=== PATIENT | female | born 1965 | race Caucasian/White ===

== ENCOUNTER 2022-12-19 08:56 | Emergency (ER) | payer BC, SELFPAY ==
[2022-12-19] VITALS (8 sets, daily range): BP systolic 127–164; BP diastolic 69–94; PULSE 66–79; RESP 16–22; TEMP 36.7; O2SAT 94–99
--- NOTE | 2022-12-19 09:24 | ED_ITS ---
HPI - Female Genitourinary General: Chief complaint: Abdominal Pain Stated complaint: urinary pain Time Seen by Provider: 12/19/22 08:59 Source: patient Mode of arrival: ambulatory History of Present Illness: 57-year-old female presents emergency room with complaints of recurrent UTIs she has been seen by walk-in clinic locally she had some cultures done she is on initially nitrofurantoin culture showed resistant that she was then switched to Cipro. the culture she showed showed it to be insensitive to Cipro and switch her from Cipro to trimethoprim sulfamethoxazole she get all pelvic cramping and discomfort. She has not had any hematuria no history of renal stones. No fever sweats or chills. MD elicited complaint: dysuria Pertinent past history: recurrent UTIs Onset (ago): week(s) Location of symptoms: low back Severity: mild Quality of pain: cramping Consistency: constant Urinary symptoms: Dysuria, Frequency and Urgency Exacerbating factors: urination Relieving factors: none Associated symptoms: Deny abdominal pain, short of breath, fevers/chills, headache(s), nausea, rash, seizures, syncope or weakness Review of Systems Const: Denies: fever(s), chills, body aches, change in appetite, fatigue or malaise ENMT: Denies: throat pain, ear or mastoid pain, nasal discharge or nasal congestion Card: Denies: chest pain, palpitations, irregular heart rhythm or syncope Resp: Denies: dyspnea, productive cough or non-productive cough GI: Denies: abdominal pain or nausea : Denies: flank pain, difficulty voiding, dysuria, urinary frequency or urinary urgency Musc: Denies: back pain Skin/Breast: Denies: rash or pruritus Neuro: Denies: headache(s) Physical Exam Const: COMMON NORMALS: no acute distress GENERAL APPEARANCE: cooperative and comfortable ORIENTATION/CONSCIOUSNESS: Yes awake, Yes oriented to person, Yes oriented to place and Yes oriented to time HENMT: COMMON NORMALS: normocephalic, atraumatic and hearing grossly normal bilaterally HEAD & SCALP: normocephalic and atraumatic Resp: COMMON NORMALS: normal respiratory effort, No retractions, No use of accessory muscles and clear to auscultation bilaterally AUSCULTATION: clear to auscultation bilaterally Cardio: COMMON NORMALS: regular rate, regular rhythm and No murmurs present (Cardio) RATE: regular rate RHYTHM: regular rhythm GI: COMMON NORMALS: Soft to palpation and No hepatosplenomegaly present AUSCULTATION: Yes normoactive bowel sounds PALPATION: Yes Soft to palpation, No Tenderness to palpation present (GI), No Guarding due to palpation present (GI) and Yes No hepatosplenomegaly present : COMMON NORMALS: Yes no CVA tenderness BLADDER/KIDNEY EXAM: Yes no CVA tenderness Back/Pelvis: COMMON NORMALS: no CVA tenderness Extremity: COMMON NORMALS: normal to inspection, capillary refill normal, no clubbing, cyanosis or edema, no calf tenderness and no pedal edema Neuro: SENSORIUM/ORIENTATION: Yes oriented to person, Yes oriented to place and Yes oriented to time Skin: COMMON NORMALS: no rashes or lesions noted GENERAL SKIN EXAM: no rashes or lesions noted Course Vital Signs: Vital signs: Vital Signs Temperature 98.0 F 12/19/22 09:03 Pulse Rate 74 12/19/22 11:29 Respiratory Rate 21 H 12/19/22 11:29 Blood Pressure 127/69 12/19/22 11:29 Pulse Oximetry 98 12/19/22 11:29 Oxygen Delivery Me thod Room Air 12/19/22 09:36 MDM - Female Medical Decision Making Labs reviewed. White count normal creatinine is mildly elevated. Patient given fluids we will discharge home with the Augmentin. She has no CVA tenderness at this time. On presentation clinically she does not appear to have a kidney stone. Nonacute abdomen on exam. We will discharge patient home switch to nitrofurantoin for any worsening change symptoms return she should have a repeat BMP within the next week increase fluids. Suspect some of her increase in her creatinine is due to the Bactrim. Lab Data 12/19/22 09:20 12/19/22 09:20 Laboratory Results WBC 5.8 10^3/uL (4.0-10.0) 12/19/22 09:20 RBC 4.23 10^6/uL (4.1-5.3) 12/19/22 09:20 Hgb 13.6 g/dL (11.5-15.3) 12/19/22 09:20 Hct 39.7 % (37.0-47.0) 12/19/22 09:20 MCV 93.9 fl (81-99) 12/19/22 09:20 MCH 32.2 pg (28.0-34.0) 12/19/22 09:20 MCHC 34.3 g/dL (30.0-36.0) 12/19/22 09:20 RDW 13.8 % (12.1-15.1) 12/19/22 09:20 Plt Count 197 10^3/cmm (130-400) 12/19/22 09:20 MPV 10.3 fL (7.4-10.4) 12/19/22 09:20 Neut % (Auto) 63.5 % 12/19/22 09:20 Lymph % (Auto) 25.4 % 12/19/22 09:20 [place] % (Auto) 7.4 % 12/19/22 09:20 Eos % (Auto) 2.8 % 12/19/22 09:20 Baso % (Auto) 0.7 % 12/19/22 09:20 Neut # (Auto) 3.68 10^3/uL (1.8-7.7) 12/19/22 09:20 Lymph # (Auto) 1.5 10^3/uL (0.8-4.8) 12/19/22 09:20 [place] # (Auto) 0.4 10^3/uL (0.2-0.9) 12/19/22 09:20 Eos # (Auto) 0.2 10^3/uL (0.0-0.8) 12/19/22 09:20 Baso # (Auto) 0.0 10^3/uL (0.0-0.1) 12/19/22 09:20 Nucleated RBC % (auto) 0 % 12/19/22 09:20 Nucleated RBCs # 0.0 /100WBC 12/19/22 09:20 Sodium 135 mmol/L (136-145) L 12/19/22 09:20 Potassium 4.4 mmol/L (3.5-5.1) 12/19/22 09:20 Chloride 98 mmol/L (98-107) 12/19/22 09:20 Carbon Dioxide 23 mmol/L (22-29) 12/19/22 09:20 Anion Gap 18.4 (5-19) 12/19/22 09:20 BUN 37 mg/dL (6-20) H 12/19/22 09:20 Creatinine 1.9 mg/dL (0.5-0.9) H 12/19/22 09:20 GFR Calculation 27.2 mL/min (90-130) L 12/19/22 09:20 Glucose 96 mg/dL (65-115) 12/19/22 09:20 Calculated Osmolality 289 mOsm/kg (285-295) 12/19/22 09:20 Calcium 9.5 mg/dL (8.5-10.5) 12/19/22 09:20 Total Bilirubin 0.9 mg/dL (0.15-1.2) 12/19/22 09:20 AST 22 U/L (0-32) 12/19/22 09:20 ALT 33 U/L (0-33) 12/19/22 09:20 Alkaline Phosphatase 91 U/L (35-105) 12/19/22 09:20 Total Protein 7.5 g/dL (6.6-8.7) 12/19/22 09:20 Albumin 4.1 g/dL (3.5-5.2) 12/19/22 09:20 Globulin 3.4 g/dL (1.3-4.6) 12/19/22 09:20 Urine Color [place] (Yellow) 12/19/22 10:38 Urine Appearance Clear (CLEAR) 12/19/22 10:38 Urine pH 6 (5-7) 12/19/22 10:38 Ur Specific [place] 1.025 (1.005-1.030) 12/19/22 10:38 Urine Protein 3+ (Negative) H 12/19/22 10:38 Urine Glucose (UA) Norm (Normal) 12/19/22 10:38 Urine Ketones 1+ (Negative) H 12/19/22 10:38 Urine Blood Neg (Negative) 12/19/22 10:38 Urine Nitrate TNP 12/19/22 10:38 Urine Bilirubin TNP 12/19/22 10:38 Urine Urobilinogen TNP 12/19/22 10:38 Ur Leukocyte Esterase 2+ (Negative) H 12/19/22 10:38 Urine RBC 0-4 /hpf (0-2) H 12/19/22 10:38 Urine WBC >100 /hpf (0-5) H 04/11/23 10:38 Ur Squamous Epith Cells 0-4 /hpf (0-5) H 12/19/22 10:38 Amorphous Sediment Not Reportable 12/19/22 10:38 Urine Bacteria 3+ /hpf (NONE) H 12/19/22 10:38 Discharge Plan Discharge Patient Disposition: Home Clinical Impression: Cystitis Condition: Stable Prescriptions: New amoxicillin-pot clavulanate 875-125 mg tablet 1 tab PO BID Qty: 14 0RF Pyridium 200 mg tablet 200 mg PO Q8H Qty: 6 0RF ondansetron HCl 4 mg tablet 4 mg PO Q6H PRN (Reason: nausea and vomiting) Qty: 20 0RF Discontinued sulfamethoxazole-trimethoprim 800-160 mg tablet 1 tab PO BID No Action alprazolam 1 mg tablet 1 mg PO DAILY PRN (Reason: Anxiety) metoprolol succinate 50 mg tablet extended release 24 hr 50 mg PO BID fluconazole 200 mg tablet 200 mg PO DAILY pramipexole 0.5 mg tablet See Rx Instructions .ROUTE .COMPLEX Rx Instructions: 1 TAB QAM AND 2 TABS AT BEDTIME irbesartan-hydrochlorothiazide 300-12.5 mg tablet 1 tab PO DAILY albuterol sulfate 90 mcg/actuation HFA aerosol inhaler 2 puff INHALATION BID PRN (Reason: Shortness Of Breath Or Wheezing) Discharge Orders: Discharge ED (Routine); Ordered 12/19/22 Ordered By: Ye Ochoa Discharge Diet: Usual diet Discharge Activity: Increase activity as tolerated Patient Instructions: Opioid Safety, Pain Management Activity Restrictions/Additional Instructions: You were seen today for a cystitis. The culture from your previous doctors visit shows that is sensitive to Augmentin recommend you change to Augmentin 875 twice daily for 7 days you are also given Pyridium as a bladder anesthetic ondansetron for nausea. Increase fluid intake return if you have further problems. Coding Level of Care Code ED Reeling And Tubing Machine Operator for Yvon Patterson
[2022-12-19 09:27] LABS: Basophils % 0.7 %; Eosinophils # 0.2 10^3/uL (0.0-0.8); Eosinophils % 2.8 %; Hematocrit 39.7 % (37.0-47.0); Hemoglobin 13.6 g/dL (11.5-15.3); Lymphocytes # 1.5 10^3/uL (0.8-4.8); Lymphocytes % 25.4 %; Mean Corpuscular HGB Conc 34.3 g/dL (30.0-36.0); Mean Corpuscular Hemoglobin 32.2 pg (28.0-34.0); Mean Corpuscular Volume 93.9 fl (81-99); Mean Platelet Volume 10.3 fL (7.4-10.4); Monocytes # 0.4 10^3/uL (0.2-0.9); Monocytes % 7.4 %; Neutrophils # 3.68 10^3/uL (1.8-7.7); Neutrophils % 63.5 %; Nucleated Red Blood Cells % 0 %; Platelet Count 197 10^3/cmm (130-400); Red Blood Count 4.23 10^6/uL (4.1-5.3); Red Cell Distribution Width 13.8 % (12.1-15.1); White Blood Count 5.8 10^3/uL (4.0-10.0)
[2022-12-19 09:45] LABS: Alanine Aminotransferase 33 U/L (0-33); Albumin Level 4.1 g/dL (3.5-5.2); Alkaline Phosphatase 91 U/L (35-105); Anion Gap 18.4 (5-19); Aspartate Amino Transferase 22 U/L (0-32); Blood Urea Nitrogen 37 mg/dL (6-20); Calcium 9.5 mg/dL (8.5-10.5); Carbon Dioxide 23 mmol/L (22-29); Chloride 98 mmol/L (98-107); Globulin 3.4 g/dL (1.3-4.6); Glomerular Filtration Rate 27.2 mL/min (90-130); Glucose 96 mg/dL (65-115); Osmolality Calculated 289 mOsm/kg (285-295); Potassium 4.4 mmol/L (3.5-5.1); Sodium 135 mmol/L (136-145); Total Bilirubin 0.9 mg/dL (0.15-1.2); Total Protein 7.5 g/dL (6.6-8.7)
[2022-12-19 10:56] LABS: Blood Urine Neg (Negative); Glucose Urine UA Norm (Normal); Ketones Urine 1+ (Negative); Protein Urine 3+ (Negative); Specific Gravity, Urine 1.025 (1.005-1.030); Urine Appearance Clear (CLEAR); Urine Color Orange (Yellow); pH Urine 6 (5-7)
[2022-12-19 10:57] LABS: Add Urine Culture? Yes; Add Urine Microscopic? YES; Bacteria Urine 3+ /hpf; Leukocyte Esterase Urine 2+ (Negative); RBC Urine 0-4 /hpf (0-2); Squamous Epithelial Cell Urine 0-4 /hpf (0-5); WBC Urine >100 /hpf (0-5)
--- NOTE | 2022-12-26 14:00 | DCPLANNER ---
inpatient care manager rn called patient due to no primary care physician - no answer at this time.
== END 2022-12-19 11:31 | disposition home or self-care (01) ==
PROVIDERS: Emergency Provider Family Medicine
DX: N30.90 Cystitis, unspecified without hematuria (principal)
CPT/HCPCS: 51798; 80053; 81001; 85025; 87077; 87086; 87186; 99284

== ENCOUNTER → 2023-07-03 12:29 | Outpatient (BNVA) | payer OTHER, SELFPAY | PROVIDERS: PCP Family Medicine; Visit Provider Internal Medicine | DX: R07.9 Chest pain, unspecified (principal) | CPT/HCPCS: 93005 ==

== ENCOUNTER 2023-07-20 09:08 | Emergency (ER) | payer OTHER, SELFPAY ==
[2023-07-20 09:30] VITALS: BP 188/98; PULSE 69; RESP 17; TEMP 36.9; O2SAT 93; BMI 42.7
--- NOTE | 2023-07-20 10:42 | ED_ITS ---
HPI - Extremity Problem General: Chief complaint: Extremity Problem,Nontraumatic Stated complaint: left arm pain, hand numb, knot in arm Time Seen by Provider: 07/20/23 09:40 Source: patient Mode of arrival: ambulatory Limitations: no limitations History of Present Illness: Patient is a 58-year-old female who presents to ED today with a complaint of pain/swelling near her left elbow as well as paresthesias to her lower arm and hand. Patient states approximately 2 to 3 years ago she had an IV near near her left AC space and states contrast infiltrated in that area. She states since then area has been swollen. She would have intermittent pains since then but states over the past 3 months she has had fairly constant pain and began noticing numbness to her left hand digits 1-4. Pain does not seem to be reproduced by movement. Numbness is intermittent but seems to be worse when she is using the extremity. She states she can move her extremity in certain positions to get relief of the paresthesias. Over the past few days she now feels pain the right shoulder and states with certain movements of her neck that it sends a shock down her arm. She denies any neck pain. Feels like maybe she martinez s been overcompensating with the symptoms in her elbow and has no exacerbated her shoulder. Denies any pallor/coolness to the extremity. No redness/warmth. She has not noticed any muscular weakness to the extremity. She has recently seen her PCP Dr. Ricci who told her he thought there might be a mass near her elbow and has ordered an US of this for further evaluation. MD Complaint: extremity pain, extremity swelling, joint swelling and joint pain Onset (ago): month(s) Pain Consistency: intermittent Location: left and upper extremity Radiation: proximal and distal Exacerbating factors: range of motion Associated symptoms: Reports no associated symptoms; Deny chest pain or fever(s) Review of Systems Const: Denies: fever(s), chills, body aches, fatigue or malaise Card: Denies: chest pain Resp: Denies: dyspnea Musc: Reports: extremity pain, extremity swelling, joint pain and joint swelling; Denies: neck pain, back pain, joint redness, joint warmth, joint stiffness, limited range of motion, muscle cramps, muscle weakness or decrease in muscle mass Neuro: Reports: numbness in extremities and sensory changes; Denies: headache(s), weakness in extremities or dizziness Physical Exam Const: COMMON NORMALS: no acute distress, patient oriented x3, no limitations, alert and well nourished GENERAL APPEARANCE: cooperative NUTRITIONAL APPEARANCE: obese morbidly obese ORIENTATION/CONSCIOUSNESS: Yes awake, Yes oriented to person, Yes oriented to place and Yes oriented to time Neck/C-Spine: COMMON NORMALS: full ROM GENERAL: Yes normal visual inspection CERVICAL SPINE: No pain with cervical ROM, No Cervical spine tenderness, No step off deformity and No Lhermitte's sign positive Resp: COMMON NORMALS: normal respiratory effort and clear to auscultation bilaterally AUSCULTATION: clear to auscultation bilaterally Cardio: COMMON NORMALS: regular rate and regular rhythm RATE: regular rate RHYTHM: regular rhythm Back/Pelvis: COMMON NORMALS: thoracic and lumbar spine normal to inspection, no thoracic nor lumbar tenderness and thoraco-lumbar ROM normal Extremity: COMMON NORMALS: normal to inspection, full ROM, capillary refill normal, no joint enlargement and no clubbing, cyanosis or edema GENERAL: Yes normal exam except as noted RIGHT UPPER EXTREMITY: Yes elbow joint OTHER: reports tenderness to ulnar L elbow; mild swelling noted when compared to R however no appreciable masses palpated; pulses intact; no pallor, coolness, erythema, warmth noted anywhere on extremity; she maintains full ROM of all joints; she reports pain radiating down R UE with lateral rotation of the neck; reports paresthesias right now are minimal Neuro: COMMON NORMALS: patient oriented x3 SENSORIUM/ORIENTATION: Yes alert, Yes oriented to person, Yes oriented to place and Yes oriented to time Course Vital Signs: Vital signs: Vital Signs Temperature 98.5 F 07/20/23 09:30 Pulse Rate 69 07/20/23 09:30 Respiratory Rate 17 07/20/23 09:30 Blood Pressure 188/98 07/20/23 09:30 Pulse Oximetry 93 07/20/23 09:30 Oxygen Delivery Me thod Room Air 07/20/23 09:30 MDM - Extremity (Nontraumatic) Medical Decision Making Patient's main complaint is intermittent pain to the left elbow and she has now been experiencing intermittent paresthesias affecting her left hand. She states paresthesias mainly affect everything but my pinky finger . US negative for DVT or any type of soft tissue mass. With reported distribution, ulnar nerve involvement unlikely. Could be median nerve territory. She has no UE weakness/wrist drop to suggest radial nerve invovement. Now given her shoulder discomforts this could be cervical radiculopathy although she has no neck pain. She feels like all her symptoms are orginating from the elbow I think she could potentially benefit from nerve conduction studies for potential nerve entrapment. She states she will follow-up with her primary care provider to see if these can be ordered if they also feel indicated. All radiology interpretation(s) finalized by discharge Discharge Plan Discharge Patient Disposition: Home Clinical Impression: Paresthesia of left upper extremity Condition: Stable Prescriptions: Continued acetaminophen-codeine 300-30 mg tablet 1 tab PO Q6H PRN (Reason: Pain) Qty: 14 0RF No Action losartan 100 mg tablet 100 mg PO DAILY Adthyza 130 mg tablet 130 mg PO DAILY fluoxetine 40 mg capsule 40 mg PO DAILY azelastine 137 mcg (0.1 %) aerosol,spray 2 spray intranasal BID Rx Instructions: administer into each nostril furosemide 20 mg tablet 20 mg PO DAILY clonidine HCl 0.1 mg tablet 0.1 mg PO TID PRN (Reason: high blood pressure) tizanidine 4 mg capsule 4 mg PO Q8H PRN (Reason: Nausea) montelukast [Singulair] 10 mg tablet 10 mg PO DAILY PRN (Reason: Allergic Symptoms) cetirizine [All Day Allergy (cetirizine)] 10 mg tablet 10 mg PO DAILY PRN (Reason: Allergic Symptoms) carvedilol 25 mg tablet 25 mg PO BID Qty: 180 3RF Rx Instructions: must administer with a meal/food Aspir-81 81 mg Tablet,Delayed Release (Dr/Ec) 81 mg PO DAILY PRN (Reason: Chest Pain) cyanocobalamin (vitamin B-12) 1,000 mcg/mL solution 1,000 mcg IM Q7D Wixela Inhub 500-50 mcg/dose Blister With Device 1 inh INHALATION BID nystatin 100,000 unit/gram powder 1 applic topical BID PRN (Reason: Rash) alprazolam 1 mg tablet 1 mg PO DAILY PRN (Reason: Anxiety) pramipexole 0.5 mg tablet 1 mg PO BEDTIME albuterol sulfate 90 mcg/actuation HFA aerosol inhaler 2 puff INHALATION BID PRN (Reason: Shortness Of Breath Or Wheezing) Discharge Orders: Discharge ED (Routine); Ordered 07/20/23 Ordered By: Verito Cobb Referrals: Daniel Ricci MD [Primary Care Provider] - Activity Restrictions/Additional Instructions: As we discussed please follow-up with your primary care provider. I think you might benefit from receiving nerve conduction studies for further evaluation of the numbness in your left hand. Coding Level of Care Code ED Strategic Planning Analyst for Yvon Patterson
--- NOTE | 2023-07-20 10:43 | USCV_ITS ---
Mylene Moran Age: 58 Gender: F : 1965 Exam Date: 07/20/2023 11:02 Ordering Phys: Verito Cobb Technologist: CT Exam Location: [facility] [place]_ Indication: lt arm pain PROCEDURES: Venous duplex imaging was performed in only the left upper extremity. In addition, the basilic vein and cephalic vein. FINDINGS: No evidence of deep vein thrombosis or superficial thrombophlebitis in the left upper extremity. CONCLUSIONS No left upper extremity DVT. Dr. Morena Calvin DO (Electronically Signed) Final Date: 20 July 2023 12:14 S
== END 2023-07-20 12:57 | disposition home or self-care (01) ==
PROVIDERS: Emergency Provider Physician Assistant; PCP Family Medicine
DX: R20.2 Paresthesia of skin (principal); Z79.82 Long term (current) use of aspirin
CPT/HCPCS: 93971; 99284

== ENCOUNTER 2023-08-28 11:55 | Outpatient (CLI) | payer OTHER, SELFPAY ==
--- NOTE | 2023-08-28 12:01 | XR_ITS ---
WS: [id number] Chest 2 views, 08/28/2023 Clinical Data: cough, shortness of breath Comparison: None. Findings: No nodules, masses or effusions are seen. The heart is slightly enlarged. The pulmonary vas cularity is not increased. No pneumonia or pneumothorax is seen. Impression: Cardiomegaly.
== END 2023-08-28 11:56 | disposition home or self-care (01) ==
LOC: RAD 11:55
PROVIDERS: PCP Family Medicine; Visit Provider Nurse Practitioner Family
DX: R05.9 Cough, unspecified (principal); R06.02 Shortness of breath; I51.7 Cardiomegaly
CPT/HCPCS: 71046

== ENCOUNTER 2023-09-06 07:26 | Emergency (ER) | payer OTHER, SELFPAY ==
[2023-09-06] VITALS (11 sets, daily range): BP systolic 130–219; BP diastolic 65–99; PULSE 68–87; RESP 15–24; TEMP 36.9; O2SAT 96–100; BMI 43.8
--- NOTE | 2023-09-06 07:52 | CTR_ITS ---
PROCEDURE INFORMATION: Exam: CT Chest With Contrast; Diagnostic Exam date and time: 09/06/2023 8:56 AM Age: 58 years old Clinical indication: Cough and dyspnea and wheezing; Patient HX: Shortness of breath with cough; Additional info: Dyspnea, wheezing, hypoxia TECHNIQUE: Imaging protocol: Diagnostic computed tomography of the chest with contrast. Total images: 3 Radiation optimization: All CT scans at this facility use at least one of these dose optimization techniques: automated exposure control; mA and/or kV adjustment per patient size (includes targeted exams where dose is matched to clinical indication); or iterative reconstruction. Contrast material: OMNIPAQUE 350; Contrast volume: 95 ml; Contrast route: INTRAVENOUS (IV); REPORTING DATA: Count of CT and Cardiac NM exams in prior 12 months: This patient has received 0 known CTs and 0 known cardiac nuclear medicine studies in the 12 months prior to the current study. COMPARISON: CR XR chest 2V* [id number] 08/28/2023 12:08 PM RADIATION DOSE METRICS: Total DLP (mGy-cm): 710.28 FINDINGS: Lungs: Trace atelectasis or scar noted in the right lung base. Pleural spaces: Unremarkable. No pneumothorax. No pleural effusion. Heart: Unremarkable. No cardiomegaly. No pericardial effusion. Lymph nodes: Unremarkable. No enlarged lymph nodes. Vasculature: Unremarkable. No aortic aneurysm. Diaphragm: A small hiatal hernia is present. Gallbladder and bile ducts: Prior cholecystectomy noted. Stomach and bowel: Status post gastric sleeve surgery noted and appears unremarkable. Bones/joints: Changes of sternotomy are noted. Mild scattered degenerative changes of the spine. Soft tissues: Unremarkable. CT/CT chest w con* [id number] IMPRESSION: Trace atelectasis or scar noted in the right lung base.
[2023-09-06 08:06] LABS: Basophils % 0.6 %; Eosinophils # 0.3 10^3/uL (0.0-0.8); Eosinophils % 6.2 %; Hematocrit 35.4 % (36-47); Lymphocytes # 1.2 10^3/uL (0.8-4.8); Lymphocytes % 23.5 %; Mean Corpuscular HGB Conc 33.3 g/dL (30-55); Mean Corpuscular Volume 95.9 fl (85-98); Mean Platelet Volume 10.6 fL (7.4-10.4); Monocytes # 0.3 10^3/uL (0.2-0.9); Monocytes % 6.6 %; Neutrophils # 3.23 10^3/uL (1.8-7.7); Neutrophils % 62.7 %; Nucleated Red Blood Cells % 0 %; Platelet Count 143 10^3/cmm (157-399); Red Blood Count 3.69 10^6/uL (3.85-5.65); Red Cell Distribution Width 14.6 % (12.1-15.1); White Blood Count 5.15 10^3/uL (3.29-11.43)
--- NOTE | 2023-09-06 08:18 | ED_ITS ---
HPI - SOB/Dyspnea 2 General: Chief Complaint: Shortness of Breath/Dyspnea Stated Complaint: sob, back pain, cough Time Seen by Provider: 09/06/23 07:26 History of Present Illness: HPI Narrative: Patient presents to the ER with complaints of wheezing cough congestion on for the last month. Patient is been on 2 rounds of steroids and 1 round of levofloxacin in this meantime. Patient finished her last round of steroids and levofloxacin about 4 days ago. Patient says he did not help at all. Patient is also been doing DuoNeb breathing treatments 2 times a day she says these do help a little bit. Patient does have a history of CHF and hypertension. Review of Systems 2 General: Reports: 10 or more systems reviewed and unremarkable except in HPI and below Physical Exam 2 Const: COMMON NORMALS: no acute distress, average body habitus, patient oriented x3, no limitations, healthy appearing, alert and well nourished HENMT: COMMON NORMALS: normocephalic, atraumatic, hearing grossly normal bilaterally, external ears normal, Normal external nose present, moist oral mucous membranes and oropharynx normal HEAD & SCALP: normocephalic and atraumatic NOSE: Normal external nose present EXTERNAL EAR: Yes external ears normal Neck/C-Spine: COMMON NORMALS: no JVD Chest: COMMONS NORMALS: normal inspection of the chest and normal palpation of entire chest wall Resp: COMMON NORMALS: normal respiratory effort, No retractions and No use of accessory muscles; negative for clear to auscultation bilaterally (Diffuse rhonchi throughout and wheezing) AUSCULTATION: not clear to auscultation bilaterally (Diffuse rhonchi throughout and wheezing) Cardio: COMMON NORMALS: no JVD, regular rate, regular rhythm, S1 normal heart sound present, S2 normal heart sound present, No gallops present (Cardio), No clicks present (Cardio), No murmurs present (Cardio) and No rub (Cardio) R ATE: regular rate RHYTHM: regular rhythm HEART SOUNDS: S1 normal heart sound present and S2 normal heart sound present GI: COMMON NORMALS: Normal to inspection, nondistended, normoactive bowel sounds present, Soft to palpation, non-tender, No hepatosplenomegaly present and no masses PALPATION: Yes Soft to palpation and Yes No hepatosplenomegaly present Neuro: COMMON NORMALS: patient oriented x3 SENSORIUM/ORIENTATION: Yes alert Course 2 Vital Signs: Vital signs: Vital Signs Temperature 98.5 F 09/06/23 07:32 Pulse Rate 81 09/06/23 10:53 Respiratory Rate 19 H 09/06/23 10:53 Blood Pressure 155/89 09/06/23 10:53 Pulse Oximetry 96 09/06/23 10:53 Oxygen Delivery Me thod Room Air 09/06/23 10:53 MDM - SOB/Dyspnea Medical Decision Making Patient presents to the ER with cough and congestion for over the last month. Patient's failed 2 rounds of steroids and 1 round of Levaquin. Patient had chest x-ray which showed trace atelectasis or scar, blood work was essentially unremarkable even respiratory swab except BNP that was elevated at 1028. Patient was given 40 mg Lasix IV and she diuresed very well in the ER. Patient will be given additional 20 mg of Lasix a day and Tessalon Perles and should follow-up with her PCP for further evaluation and testing. Differential Diagnosis Unlikely acute exacerbation of chronic obstructive airways disease, congestive heart failure, community acquired pneumonia, asthma with exacerbation or pulmonary embolism Medical Records I reviewed the patient's medical records. Lab Data I reviewed the patient's lab results. 09/06/23 07:45 09/06/23 07:45 Labs/Radiology: Radiology Impressions Chest CT 09/06/23 07:52 IMPRESSION: Trace atelectasis or scar noted in the right lung base. Laboratory Results WBC 5.15 10^3/uL (3.29-11.43) 09/06/23 07:45 RBC 3.69 10^6/uL (3.85-5.65) L 09/06/23 07:45 Hgb 11.80 g/dL (11.27-16.99) 09/06/23 07:45 Hct 35.4 % (36-47) L 09/06/23 07:45 MCV 95.9 fl (85-98) 09/06/23 07:45 MCH 32.0 pg (27-33) 09/06/23 07:45 MCHC 33.3 g/dL (30-55) 09/06/23 07:45 RDW 14.6 % (12.1-15.1) 09/06/23 07:45 Plt Count 143 10^3/cmm (157-399) L 09/06/23 07:45 MPV 10.6 fL (7.4-10.4) H 09/06/23 07:45 Neut % (Auto) 62.7 % 09/06/23 07:45 Lymph % (Auto) 23.5 % 09/06/23 07:45 [place] % (Auto) 6.6 % 09/06/23 07:45 Eos % (Auto) 6.2 % 09/06/23 07:45 Baso % (Auto) 0.6 % 09/06/23 07:45 Neut # (Auto) 3.23 10^3/uL (1.8-7.7) 09/06/23 07:45 Lymph # (Auto) 1.2 10^3/uL (0.8-4.8) 09/06/23 07:45 [place] # (Auto) 0.3 10^3/uL (0.2-0.9) 09/06/23 07:45 Eos # (Auto) 0.3 10^3/uL (0.0-0.8) 09/06/23 07:45 Baso # (Auto) 0.0 10^3/uL (0.0-0.1) 09/06/23 07:45 Nucleated RBC % (auto) 0 % 09/06/23 07:45 Nucleated RBCs # 0.0 /100WBC 09/06/23 07:45 Sodium 140 mmol/L (136-145) 09/06/23 07:45 Potassium 4.5 mmol/L (3.5-5.1) 09/06/23 07:45 Chloride 101 mmol/L (98-107) 09/06/23 07:45 Carbon Dioxide 29 mmol/L (22-29) 09/06/23 07:45 Anion Gap 14.5 (5-19) 09/06/23 07:45 BUN 13 mg/dL (6-20) 09/06/23 07:45 Creatinine 0.8 mg/dL (0.5-0.9) 09/06/23 07:45 GFR Calculation 73.7 mL/min (90-130) L 09/06/23 07:45 Glucose 115 mg/dL (65-115) 09/06/23 07:45 Calculated Osmolality 291 mOsm/kg (285-295) 09/06/23 07:45 Calcium 9.3 mg/dL (8.5-10.5) 09/06/23 07:45 Total Bilirubin 0.7 mg/dL (0.15-1.2) 09/06/23 07:45 AST 17 U/L (0-32) 09/06/23 07:45 ALT 14 U/L (0-33) 09/06/23 07:45 Alkaline Phosphatase 94 U/L (35-105) 09/06/23 07:45 NT-Pro-B Natriuret Pep 1028 pg/mL (0-125) H 09/06/23 07:45 Total Protein 6.4 g/dL (6.6-8.7) L 09/06/23 07:45 Albumin 3.9 g/dL (3.5-5.2) 09/06/23 07:45 Globulin 2.5 g/dL (1.3-4.6) 09/06/23 07:45 Prolactin 6.11 ng/mL (4.8-23.3) 09/06/23 07:45 Nasal Influ A H1 2009 PCR Not detected (NOT DETECT) 09/06/23 08:02 Adenovirus (PCR) Not detected (NOT DETECT) 09/06/23 08:02 C. pneumoniae DNA (PCR) Not detected (NOT DETECT) 09/06/23 08:02 Coronavirus 229E (PCR) Not detected (NOT DETECT) 09/06/23 08:02 Human Metapneumovir PCR Not detected (NOT DETECT) 09/06/23 08:02 Influenza A (H1) PCR Not detected (NOT DETECT) 09/06/23 08:02 Influenza A (H3) PCR Not detected (NOT DETECT) 09/06/23 08:02 Influenza Type A (PCR) Not detected (NOT DETECT) 09/06/23 08:02 Influenza Type B (PCR) Not detected (NOT DETECT) 09/06/23 08:02 M. pneumoniae (PCR) Not detected (NOT DETECT) 09/06/23 08:02 Parainfluenza 1 (PCR) Not detected (NOT DETECT) 09/06/23 08:02 Parainfluenza 2 (PCR) Not detected (NOT DETECT) 09/06/23 08:02 Parainfluenza 3 (PCR) Not detected (NOT DETECT) 09/06/23 08:02 Parainfluenza 4 (PCR) Not detected (NOT DETECT) 09/06/23 08:02 RSV Type A (PCR) Not detected (NOT DETECT) 09/06/23 08:02 RSV Type B (PCR) Not detected (NOT DETECT) 09/06/23 08:02 Entero/Rhino (PCR) Not detected (NOT DETECT) 09/06/23 08:02 SARS-CoV-2 (PCR) Not detected (NOT DETECT) 09/06/23 08:02 All radiology interpretation(s) finalized by discharge Discharge Plan Discharge Patient Disposition: Home Clinical Impression: Chronic cough Congestive heart failure Qualifiers: Heart failure type: unspecified Heart failure chronicity: acute on chronic Q ualified Code(s): I50.9 - Heart failure, unspecified Condition: Stable Prescriptions: New benzonatate 100 mg capsule 100 mg PO TID PRN (Reason: cough) Qty: 90 0RF ipratropium-albuterol 0.5 mg-3 mg(2.5 mg base)/3 mL solution for nebulization 3 ml inhalation QID PRN (Reason: shortness of breath or wheezing) Qty: 180 0RF furosemide 40 mg tablet 40 mg PO DAILY Qty: 7 0RF No Action fluconazole 150 mg tablet 150 mg PO Q3D 6 Days Qty: 3 1RF nystatin 100,000 unit/mL suspension 1 ml PO QID 7 Days Qty: 28 0RF Rx Instructions: swish and swallow losartan 100 mg tablet 100 mg PO DAILY fluoxetine 40 mg capsule 40 mg PO DAILY azelastine 137 mcg (0.1 %) aerosol,spray 2 spray intranasal BID Rx Instructions: administer into each nostril furosemide 20 mg tablet 20 mg PO DAILY clonidine HCl 0.1 mg tablet 0.1 mg PO TID PRN (Reason: high blood pressure) tizanidine 4 mg capsule 4 mg PO Q8H PRN (Reason: Nausea) montelukast [Singulair] 10 mg tablet 10 mg PO DAILY PRN (Reason: Allergic Symptoms) cetirizine [All Day Allergy (cetirizine)] 10 mg tablet 10 mg PO DAILY PRN (Reason: Allergic Symptoms) carvedilol 25 mg tablet 25 mg PO BID Qty: 180 3RF Rx Instructions: must administer with a meal/food aspirin [Aspir-81] 81 mg Tablet,Delayed Release (Dr/Ec) 81 mg PO DAILY PRN (Reason: Chest Pain) cyanocobalamin (vitamin B-12) 1,000 mcg/mL solution 1,000 mcg IM Q7D fluticasone propion-salmeterol [Wixela Inhub] 500-50 mcg/dose Blister With Device 1 inh INHALATION BID nystatin 100,000 unit/gram powder 1 applic topical BID PRN (Reason: Rash) acetaminophen-codeine 300-30 mg tablet 1 tab PO Q6H PRN (Reason: Pain) Qty: 14 0RF levothyroxine 125 mcg tablet 125 mcg PO DAILY alprazolam 1 mg tablet 1 mg PO DAILY PRN (Reason: Anxiety) pramipexole 0.5 mg tablet 1 mg PO BEDTIME albuterol sulfate 90 mcg/actuation HFA aerosol inhaler 2 puff INHALATION BID PRN (Reason: Shortness Of Breath Or Wheezing) Discharge Orders: Discharge ED (Routine); Ordered 09/06/23 Ordered By: Ramesh Gordillo Referrals: Daniel Ricci MD [Primary Care Provider] - 1 week Patient Instructions: Heart Failure (ED), Chronic Cough (ED) Activity Restrictions/Additional Instructions: Please increase your Lasix to 40 mg in the morning for the next 7 days. Coding Level of Care Code ED Insulation Nozzleman for Yvon Patterson
[2023-09-06 08:33] LABS: Alanine Aminotransferase 14 U/L (0-33); Albumin Level 3.9 g/dL (3.5-5.2); Alkaline Phosphatase 94 U/L (35-105); Aspartate Amino Transferase 17 U/L (0-32); Blood Urea Nitrogen 13 mg/dL (6-20); Calcium 9.3 mg/dL (8.5-10.5); Carbon Dioxide 29 mmol/L (22-29); Chloride 101 mmol/L (98-107); Globulin 2.5 g/dL (1.3-4.6); Glomerular Filtration Rate 73.7 mL/min (90-130); Glucose 115 mg/dL (65-115); NT Pro B Type Natriuretic Pept 1028 pg/mL (0-125); Osmolality Calculated 291 mOsm/kg (285-295); Sodium 140 mmol/L (136-145); Total Bilirubin 0.7 mg/dL (0.15-1.2); Total Protein 6.4 g/dL (6.6-8.7)
[2023-09-06] MEDS: cloNIDine 0.1 mg Tablet PO (08:34)
[2023-09-06 08:37] LABS: Anion Gap 14.5 (5-19); Potassium 4.5 mmol/L (3.5-5.1)
[2023-09-06] MEDS: ipratropium-albuterol 3 mL Neb INHALATION (08:38)
[2023-09-06 09:02] LABS: Prolactin 6.11 ng/mL (4.8-23.3)
[2023-09-06] MEDS: FUROsemide 10 mg/mL SDV 4mL 40 MG IVP (09:08)
[2023-09-06] MEDS: iohexol 350 mg/mL 500 mL Btl (per mL) IV (09:09)
[2023-09-06 10:08] LABS: Adenovirus Not Detected (NOT DETECT); Chlamydia Pneumoniae Not Detected (NOT DETECT); Coronavirus 229E,HKU1,NL63,OC4 Not Detected (NOT DETECT); Human Metapneumovirus Not Detected (NOT DETECT); Human Rhinovirus/Enterovirus Not Detected (NOT DETECT); Influenza A Not Detected (NOT DETECT); Influenza A H1 Not Detected (NOT DETECT); Influenza A H1-2009 Not Detected (NOT DETECT); Influenza A H3 Not Detected (NOT DETECT); Influenza B Not Detected (NOT DETECT); Mycoplasma Pneumoniae Not Detected (NOT DETECT); Parainfluenza Virus Type 1 Not Detected (NOT DETECT); Parainfluenza Virus Type 2 Not Detected (NOT DETECT); Parainfluenza Virus Type 3 Not Detected (NOT DETECT); Parainfluenza Virus Type 4 Not Detected (NOT DETECT); Respiratory Syncytial Virus A Not Detected (NOT DETECT); Respiratory Syncytial Virus B Not Detected (NOT DETECT); SARS-COV-2 Not Detected (NOT DETECT)
[2023-09-06] MEDS: acetaminophen 500 mg Tablet 1000 MG PO (10:21)
== END 2023-09-06 11:08 | disposition home or self-care (01) ==
PROVIDERS: Emergency Provider Emergency Medicine; PCP Family Medicine
DX: R05.3 Chronic cough (principal); I11.0 Hypertensive heart disease with heart failure; I50.9 Heart failure, unspecified; Z79.82 Long term (current) use of aspirin; Z11.52 Encounter for screening for COVID-19
CPT/HCPCS: 36415; 71260; 80053; 83880; 84146; 85025; 87040; 87486; 87581; 87633; 94640; 96374; 99285; J1940; Q9967

== ENCOUNTER 2023-11-01 12:53 | Emergency (ER) | payer OTHER, SELFPAY ==
[2023-11-01] VITALS (11 sets, daily range): BP systolic 123–166; BP diastolic 46–113; PULSE 53–75; RESP 16; TEMP 36.6; O2SAT 92–97; BMI 43.5
--- NOTE | 2023-11-01 13:18 | ECG_ITS ---
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 Measurements Intervals [place] Rate: 56 P: 9 AL: 165 QRS: -2 QRSD: 94 T: 26 QT: 408 QTc: 397 Interpretive Statements SINUS BRADYCARDIA LOW QRS VOLTAGE IN PRECORDIAL LEADS [QRS DEFLECTION < 1.0 mV IN CHEST LEADS] VOLTAGE CRITERIA FOR LVH [MEETS CRITERIA IN ONE OF: R(aVL), S(V1), R(V5), R(V5/V6)+S(V1)] Compared to ECG 07/03/2023 12:48:11 Left ventricular hypertrophy now present Sinus rhythm no longer present Electronically Signed On 11-01-2023 20:04:34 URGENT CARE TECHNICIAN by Meagan Velasquez M.D. [id number]
--- NOTE | 2023-11-01 13:18 | XR_ITS ---
WS: [id number] Examination: XR chest 1V portable [id number] Reason for Exam: dyspnea Date: November 01, 2023 Comparison: August 28, 2023 Findings: The heart is not grossly enlarged on this AP film. Sternal wires are again noted There is no pulmonary edema. There is no pleural effusion. No dense consolidation is identified. Impression: No acute lung process is appreciated.
[2023-11-01 13:38] LABS: Basophils % 0.5 %; Eosinophils # 0.1 10^3/uL (0.0-0.8); Eosinophils % 3.2 %; Hematocrit 36.2 % (36-47); Lymphocytes % 23.7 %; Mean Corpuscular Volume 94.3 fl (85-98); Mean Platelet Volume 10.1 fL (7.4-10.4); Monocytes # 0.5 10^3/uL (0.2-0.9); Neutrophils # 2.38 10^3/uL (1.8-7.7); Neutrophils % 59.4 %; Nucleated Red Blood Cells % 0 %; Platelet Count 153 10^3/cmm (157-399); Red Blood Count 3.84 10^6/uL (3.85-5.65); Red Cell Distribution Width 13.3 % (12.1-15.1); White Blood Count 4.01 10^3/uL (3.29-11.43)
[2023-11-01 13:52] LABS: Troponin(5th) Baseline 8 ng/L (0-10)
--- NOTE | 2023-11-01 13:53 | ED_ITS ---
HPI - SOB/Dyspnea 2 General: Chief Complaint: Shortness of Breath/Dyspnea Stated Complaint: sob Time Seen by Provider: 11/01/23 13:17 History of Present Illness: HPI Narrative: Patient presents to the ER with complaints of the last couple days being short of breath, more swollen than normal, dizziness, sore throat, sinus congestion, patient is normally on 20 mg Lasix a day for her congestive heart failure. Patient took an extra 1 this morning and says she is already lost 4 pounds. Patient says she thinks it all started up in her nose and sinuses and just has been running down into her lungs. Patient is coughing up some green phlegm at this time. Patient has not had any fever or chills and has not been around any sick contacts that she is aware of. Review of Systems 2 General: Reports: 10 or more systems reviewed and unremarkable except in HPI and below Physical Exam 2 Const: COMMON NORMALS: no acute distress, average body habitus, patient oriented x3, no limitations, healthy appearing and alert HENMT: COMMON NORMALS: normocephalic, atraumatic, hearing grossly normal bilaterally, EAC's normal, Normal external nose present, moist oral mucous membranes and oropharynx normal HEAD & SCALP: normocephalic and atraumatic NOSE: Normal external nose present EXTERNAL AUDITORY CANAL: EAC's normal Eye: COMMON NORMALS: Equal, round and reactive pupils present, EOMs intact bilaterally, conjunctivae normal and no scleral icterus CONJUNCTIVA: Yes conjunctivae normal PUPIL: Yes Equal, round and reactive pupils present Neck/C-Spine: COMMON NORMALS: no JVD Chest: COMMONS NORMALS: normal inspection of the chest and normal palpation of entire chest wall Resp: COMMON NORMALS: normal respiratory effort, No retractions, No use of accessory muscles and clear to auscultation bilaterally AUSCULTATION: clear to auscultation bilaterally Cardio: COMMON NORMALS: no JVD, regular rate, regular rhythm, S1 normal heart sound present, S2 normal heart sound present, No gallops present (Cardio), No clicks present (Cardio), No murmurs present (Cardio) and No rub (Cardio) R ATE: regular rate RHYTHM: regular rhythm HEART SOUNDS: S1 normal heart sound present and S2 normal heart sound present GI: COMMON NORMALS: Normal to inspection, nondistended, normoactive bowel sounds present, Soft to palpation, non-tender, No hepatosplenomegaly present and no masses PALPATION: Yes Soft to palpation and Yes No hepatosplenomegaly present Extremity: NARRATIVE EXTREMITY EXAM: 1+ bilateral lower extremity pitting kerry ma Neuro: COMMON NORMALS: patient oriented x3 SENSORIUM/ORIENTATION: Yes alert Course 2 Vital Signs: Vital signs: Vital Signs Temperature 97.8 F 11/01/23 12:55 Pulse Rate 57 L 11/01/23 16:30 Respiratory Rate 16 11/01/23 12:55 Blood Pressure 135/60 11/01/23 17:30 Pulse Oximetry 93 11/01/23 17:30 Oxygen Delivery Me thod Room Air 11/01/23 17:30 MDM - SOB/Dyspnea Medical Decision Making Patient presented with shortness of breath dizziness sore throat and sinus congestion. Patient was worked up with chest x-ray, lab work that included CBC CMP cardiac enzymes BNP, all of which was benign except the BNP was slightly elevated at 2134. Patient is currently on Lasix 20 mg a day. We will double this for the next 5 days. He also placed patient on antibiotics for sinus infection. Patient will follow-up with her PCP in the next 7 to 10 days for further evaluation and treatment. Differential Diagnosis Likely congestive heart failure; Unlikely acute exacerbation of chronic obstructive airways disease, community acquired pneumonia, asthma with exacerbation or pulmonary embolism Medical Records I reviewed the patient's medical records. Lab Data I reviewed the patient's lab results. 11/01/23 13:28 11/01/23 13:28 Labs/Radiology: Laboratory Results WBC 4.01 10^3/uL (3.29-11.43) 11/01/23 13:28 RBC 3.84 10^6/uL (3.85-5.65) L 11/01/23 13:28 Hgb 12.30 g/dL (11.27-16.99) 11/01/23 13:28 Hct 36.2 % (36-47) 11/01/23 13:28 MCV 94.3 fl (85-98) 11/01/23 13:28 MCH 32.0 pg (27-33) 11/01/23 13:28 MCHC 34.0 g/dL (30-55) 11/01/23 13:28 RDW 13.3 % (12.1-15.1) 11/01/23 13:28 Plt Count 153 10^3/cmm (157-399) L 11/01/23 13:28 MPV 10.1 fL (7.4-10.4) 11/01/23 13:28 Neut % (Auto) 59.4 % 11/01/23 13:28 Lymph % (Auto) 23.7 % 11/01/23 13:28 [place] % (Auto) 13.0 % 11/01/23 13:28 Eos % (Auto) 3.2 % 11/01/23 13:28 Baso % (Auto) 0.5 % 11/01/23 13:28 Neut # (Auto) 2.38 10^3/uL (1.8-7.7) 11/01/23 13:28 Lymph # (Auto) 1.0 10^3/uL (0.8-4.8) 11/01/23 13:28 [place] # (Auto) 0.5 10^3/uL (0.2-0.9) 11/01/23 13:28 Eos # (Auto) 0.1 10^3/uL (0.0-0.8) 11/01/23 13:28 Baso # (Auto) 0.0 10^3/uL (0.0-0.1) 11/01/23 13:28 Nucleated RBC % (auto) 0 % 11/01/23 13:28 Nucleated RBCs # 0.0 /100WBC 11/01/23 13:28 Sodium 138 mmol/L (136-145) 11/01/23 13:28 Potassium 3.9 mmol/L (3.5-5.1) 11/01/23 13:28 Chloride 100 mmol/L (98-107) 11/01/23 13:28 Carbon Dioxide 26 mmol/L (22-29) 11/01/23 13:28 Anion Gap 15.9 (5-19) 11/01/23 13:28 BUN 13 mg/dL (6-20) 11/01/23 13:28 Creatinine 0.9 mg/dL (0.5-0.9) 11/01/23 13:28 GFR Calculation 64.3 mL/min (90-130) L 11/01/23 13:28 Glucose 87 mg/dL (65-115) 11/01/23 13:28 Calculated Osmolality 285 mOsm/kg (285-295) 11/01/23 13:28 Calcium 8.4 mg/dL (8.5-10.5) L 11/01/23 13:28 Magnesium 1.6 mg/dL (1.7-2.3) L 11/01/23 13:28 Total Bilirubin 0.8 mg/dL (0.15-1.2) 11/01/23 13:28 AST 15 U/L (0-32) 11/01/23 13:28 ALT 9 U/L (0-33) 11/01/23 13:28 Alkaline Phosphatase 93 U/L (35-105) 11/01/23 13:28 Troponin T Baseline 8 ng/L (0-10) 11/01/23 13:28 Troponin T 120 Minute 7.62 ng/L (0-10) 11/01/23 15:40 Delta Troponin T -0.38 ABS# (0-10) L 11/01/23 15:40 NT-Pro-B Natriuret Pep 2134 pg/mL (0-125) H 11/01/23 13:28 Total Protein 6.4 g/dL (6.6-8.7) L 11/01/23 13:28 Albumin 3.9 g/dL (3.5-5.2) 11/01/23 13:28 Globulin 2.5 g/dL (1.3-4.6) 11/01/23 13:28 All radiology interpretation(s) finalized by discharge EKG Data EKG 1: I personally reviewed and interpreted this EKG as follows: EKG Interpretation Date: 11/01/23 EKG interpretation time: 13:31 Prior EKG tracings: not available for review Interpretation: EKG shows ventricular rate 56 bpm, MT interval 165, QRS duration 94, QTc of 4 1, sinus bradycardia EKG 2: I personally reviewed and interpreted this EKG as follows: EKG Interpretation Date: 11/01/23 EKG interpretation time: 15:19 Prior EKG tracings: available for review Interpretation: Ventricular rate 52 bpm, MT interval 172, QRS duration 109, QTc of 424, sinus bradycardia Discharge Plan Discharge Patient Disposition: Home Clinical Impression: Congestive heart failure Qualifiers: Heart failure type: unspecified Heart failure chronicity: acute on chronic Q ualified Code(s): I50.9 - Heart failure, unspecified Acute infection of sinus Qualifiers: Sinusitis location: maxillary Recurrence: non-recurrent Qualified Code(s): J 01.00 - Acute maxillary sinusitis, unspecified Condition: Stable Prescriptions: New cefdinir 300 mg capsule 300 mg PO BID 10 Days Qty: 20 0RF Lasix 20 mg tablet 20 mg PO BID Qty: 30 0RF Rx Instructions: Please take 1 pill twice a day for 5 days and then drop down to 1 pill once a day. No Action losartan 100 mg tablet 100 mg PO DAILY fluoxetine 40 mg capsule 40 mg PO DAILY azelastine 137 mcg (0.1 %) aerosol,spray 2 spray intranasal BID Rx Instructions: administer into each nostril furosemide 20 mg tablet 20 mg PO DAILY carvedilol 25 mg tablet 25 mg PO BID Qty: 180 3RF Rx Instructions: must administer with a meal/food aspirin [Aspir-81] 81 mg Tablet,Delayed Release (Dr/Ec) 81 mg PO DAILY PRN (Reason: Chest Pain) fluticasone propion-salmeterol [Wixela Inhub] 500-50 mcg/dose Blister With Device 1 inh INHALATION BID acetaminophen-codeine 300-30 mg tablet 1 tab PO Q6H PRN (Reason: Pain) Qty: 14 0RF levothyroxine 125 mcg tablet 125 mcg PO DAILY alprazolam 1 mg tablet 1 mg PO DAILY PRN (Reason: Anxiety) pramipexole 0.5 mg tablet 1 mg PO BEDTIME albuterol sulfate 90 mcg/actuation HFA aerosol inhaler 2 puff INHALATION BID PRN (Reason: Shortness Of Breath Or Wheezing) fluticasone propionate 50 mcg/actuation spray,suspension 1 spray INTRANASAL DAILY Discharge Orders: Discharge ED (Routine); Ordered 11/01/23 Ordered By: Ramesh Gordillo Referrals: Daniel Ricci MD [Primary Care Provider] - 1 week Patient Instructions: Congestive Heart Failure, Sinusitis (ED) Activity Restrictions/Additional Instructions: Please take all your antibiotics as prescribed. Please double your Lasix for the next 5 days and then drop back down to 1 pill once a day. Please follow-up with your family practice physician within the next 7 to 10 days for further evaluation treatment as needed. If your symptoms return or worsen Coding Level of Care Code ED Film Critic for Yvon Patterson
[2023-11-01 14:21] LABS: Alanine Aminotransferase 9 U/L (0-33); Albumin Level 3.9 g/dL (3.5-5.2); Alkaline Phosphatase 93 U/L (35-105); Anion Gap 15.9 (5-19); Aspartate Amino Transferase 15 U/L (0-32); Blood Urea Nitrogen 13 mg/dL (6-20); Calcium 8.4 mg/dL (8.5-10.5); Carbon Dioxide 26 mmol/L (22-29); Chloride 100 mmol/L (98-107); Globulin 2.5 g/dL (1.3-4.6); Glomerular Filtration Rate 64.3 mL/min (90-130); Glucose 87 mg/dL (65-115); Magnesium 1.6 mg/dL (1.7-2.3); NT Pro B Type Natriuretic Pept 2134 pg/mL (0-125); Osmolality Calculated 285 mOsm/kg (285-295); Potassium 3.9 mmol/L (3.5-5.1); Sodium 138 mmol/L (136-145); Total Bilirubin 0.8 mg/dL (0.15-1.2); Total Protein 6.4 g/dL (6.6-8.7)
--- NOTE | 2023-11-01 15:18 | ECG_ITS ---
[facility] Test Date: 2023-11-01 Pat Name: Mylene Moran Department: Room: Gender: Female Neurology Technician: : 1965 Requested By: Ramesh Gordillo Order Number: [id number] Richy MD: Meagan Velasquez M.D. Measurements Intervals [place] Rate: 52 P: 9 TN: 172 QRS: -3 QRSD: 109 T: 25 QT: 444 QTc: 415 Interpretive Statements SINUS BRADYCARDIA VOLTAGE CRITERIA FOR LVH [MEETS CRITERIA IN ONE OF: R(aVL), S(V1), R(V5), R(V5/V6)+S(V1)] POSSIBLE ANTERIOR MYOCARDIAL INFARCTION , PROBABLY OLD [30 ms Q WAVE IN V3/V4, OR R < 0.2 mV IN V4] Compared to ECG 11/01/2023 13:31:16 Myocardial infarct finding now present Electronically Signed On 11-01-2023 20:19:57 SHOE LINING FITTER by Meagan Velasquez M.D. [id number]
[2023-11-01 16:12] LABS: Troponin 5 2HR 7.62 ng/L (0-10)
[2023-11-01 16:13] LABS: Troponin 5 2HR Delta -0.38 ABS# (0-10)
== END 2023-11-01 18:14 | disposition home or self-care (01) ==
PROVIDERS: Emergency Provider Emergency Medicine; PCP Family Medicine
DX: J01.00 Acute maxillary sinusitis, unspecified (principal); I50.9 Heart failure, unspecified; Z79.82 Long term (current) use of aspirin
CPT/HCPCS: 36415; 71045; 80053; 83735; 83880; 84484; 85025; 93005; 99285

== ENCOUNTER 2023-12-01 16:26 | Emergency (ER) | payer MEDICAID, SELFPAY ==
[2023-12-01] VITALS (7 sets, daily range): BP systolic 141–203; BP diastolic 70–119; PULSE 61–69; RESP 16–26; TEMP 36.6; O2SAT 96–98; BMI 44.9
--- NOTE | 2023-12-01 16:36 | ECG_ITS ---
[facility] Test Date: 2023-12-01 Pat Name: Mylene Moran Department: Room: Gender: Female Pediatric Speech Language Pathologist: : 1965 Requested By: Ye Lewis Order Number: [id number] Richy MD: Norman Cole M.D. Measurements Intervals [place] Rate: 56 P: 11 RI: 177 QRS: 0 QRSD: 94 T: 29 QT: 421 QTc: 409 Interpretive Statements SINUS BRADYCARDIA VOLTAGE CRITERIA FOR LVH [MEETS CRITERIA IN ONE OF: R(aVL), S(V1), R(V5), R(V5/V6)+S(V1)] Compared to ECG 11/01/2023 15:19:20 Myocardial infarct finding no longer present Electronically Signed On 12-02-2023 23:56:53 CDT by Norman Cole M.D. [id number]
--- NOTE | 2023-12-01 16:43 | XRR_ITS ---
PROCEDURE INFORMATION: Exam: XR Chest Exam date and time: 12/01/2023 5:29 PM Age: 58 years old Clinical indication: Prior surgery; Surgery date: 6+ months; Surgery type: Cabg 1973; Patient HX: Dyspnea; SOB; Cough; HTN TECHNIQUE: Imaging protocol: Radiologic exam of the chest. Views: 1 view. COMPARISON: CR XR chest 1V portable [id number] 11/01/2023 2:07 PM FINDINGS: Lungs: See Heart/Mediastinum finding. Pleural spaces: Unremarkable. No pleural effusion. No pneumothorax. Heart/Mediastinum: Cardiomegaly, negative for infiltrate Bones/joints: Unremarkable. XR/XR chest 1V portable [id number] IMPRESSION: Cardiomegaly, negative for infiltrate
[2023-12-01] MEDS: lisinopril 20 mg Tablet PO (17:05)
[2023-12-01] MEDS: hyDRALAzine 20 mg/mL INJ 1 mL IVP (17:06)
[2023-12-01] MEDS: amlodipine 10 mg Tablet PO (17:06)
[2023-12-01 17:19] LABS: Basophils % 0.4 %; Eosinophils # 0.3 10^3/uL (0.0-0.8); Hematocrit 35.4 % (36-47); Lymphocytes # 1.2 10^3/uL (0.8-4.8); Lymphocytes % 22.9 %; Mean Corpuscular HGB Conc 33.6 g/dL (30-55); Mean Corpuscular Hemoglobin 31.7 pg (27-33); Mean Corpuscular Volume 94.4 fl (85-98); Mean Platelet Volume 9.8 fL (7.4-10.4); Monocytes # 0.5 10^3/uL (0.2-0.9); Monocytes % 10.1 %; Neutrophils # 3.25 10^3/uL (1.8-7.7); Neutrophils % 60.4 %; Nucleated Red Blood Cells % 0 %; Platelet Count 201 10^3/cmm (157-399); Red Blood Count 3.75 10^6/uL (3.85-5.65); Red Cell Distribution Width 13.9 % (12.1-15.1); White Blood Count 5.37 10^3/uL (3.29-11.43)
[2023-12-01 17:36] LABS: Alanine Aminotransferase 10 U/L (0-33); Albumin Level 3.9 g/dL (3.5-5.2); Alkaline Phosphatase 102 U/L (35-105); Anion Gap 12.7 (5-19); Aspartate Amino Transferase 13 U/L (0-32); Blood Urea Nitrogen 12 mg/dL (6-20); Calcium 8.7 mg/dL (8.5-10.5); Carbon Dioxide 31 mmol/L (22-29); Chloride 100 mmol/L (98-107); Creatinine Clr Calc Pharmacy 95.7648; Globulin 3.1 g/dL (1.3-4.6); Glomerular Filtration Rate 64.3 mL/min (90-130); Glucose 83 mg/dL (65-115); Osmolality Calculated 289 mOsm/kg (285-295); Potassium 3.7 mmol/L (3.5-5.1); Sodium 140 mmol/L (136-145)
--- NOTE | 2023-12-01 17:39 | ED_ITS ---
Documented by User: Ye Ochoa DO 12/03/23 06:59 HPI - Recheck/Abnormal Lab/Rx 2 General: Chief Complaint: Recheck/Abnormal Lab/Rx Stated Complaint: high blood pressure, SOB Time Seen by Provider: 12/01/23 16:43 Source: patient Mode of arrival: ambulatory History of Present Illness: 50-year-old female presents emergency ro om complaining of elevated blood pressure last 3 days. She taken various medication she prescribed Coreg Lasix and losartan she has been taking as regularly she is also been taking clonidine and Xanax. She said despite this her blood pressures consistently been elevated. She was seen last month at that time she had some mild congestive heart failure and was started on Lasix 20 mg twice a day for 5 days then once a day. She has not had any follow-up as an outpatient since then Associated symptoms: shortness of breath, malaise and nausea Review of Systems 2 Const: Denies: fever(s) or chills Card: Reports: chest pain Resp: Reports: dyspnea GI: Denies: abdominal pain : Denies: dysuria, urinary frequency or urinary urgency Musc: Denies: neck pain or back pain Skin/Breast: Denies: rash PFSH ED 2 PFSH: Medical History (Updated 12/01/23 @ 20:11 by Julio Houston DO) Hypertension Congestive heart failure Physical Exam 2 Const: COMMON NORMALS: no acute distress GENERAL APPEARANCE: cooperative and comfortable ORIENTATION/CONSCIOUSNESS: Yes awake, Yes oriented to person, Yes oriented to place and Yes oriented to time HENMT: COMMON NORMALS: normocephalic, atraumatic and hearing grossly normal bilaterally HEAD & SCALP: normocephalic and atraumatic Resp: COMMON NORMALS: normal respiratory effort, No retractions, No use of accessory muscles and clear to auscultation bilaterally AUSCULTATION: clear to auscultation bilaterally Cardio: COMMON NORMALS: regular rate, regular rhythm and No murmurs present (Cardio) RATE: regular rate RHYTHM: regular rhythm GI: COMMON NORMALS: Soft to palpation and No hepatosplenomegaly present A USCULTATION: Yes normoactive bowel sounds PALPATION: Yes Soft to palpation, No Tenderness to palpation present (GI), No Guarding due to palpation present (GI) and Yes No hepatosplenomegaly present Extremity: COMMON NORMALS: normal to inspection, capillary refill normal and no calf tenderness GENERAL: Yes edema (1+ edema lower extremities to the level of the ankles) Neuro: SENSORIUM/ORIENTATION: Yes oriented to person, Yes oriented to place and Yes oriented to time Skin: COMMON NORMALS: no rashes or lesions noted GENERAL SKIN EXAM: no rashes or lesions noted Course 2 Vital Signs: Vital signs: Vital Signs Temperature 97.8 F 12/01/23 16:28 Pulse Rate 69 12/01/23 20:46 Respiratory Rate 26 H 12/01/23 20:46 Blood Pressure 141/71 12/01/23 20:46 Pulse Oximetry 96 12/01/23 20:46 Oxygen Delivery Me thod Room Air 12/01/23 18:27 MDM - Recheck/Abnormal Lab/Rx Medical Decision Making Care signed out to Dr. Houston at change of shift. See final notes for diagnosis and disposition. Medical Records I reviewed the patient's medical records. Lab Data I reviewed the patient's lab results. 12/01/23 17:02 12/01/23 17:02 Radiology Impressions Chest X-Ray 12/01/23 16:43 IMPRESSION: Cardiomegaly, negative for infiltrate Laboratory Results WBC 5.37 10^3/uL (3.29-11.43) 12/01/23 17:02 RBC 3.75 10^6/uL (3.85-5.65) L 12/01/23 17:02 Hgb 11.90 g/dL (11.27-16.99) 12/01/23 17:02 Hct 35.4 % (36-47) L 12/01/23 17:02 MCV 94.4 fl (85-98) 12/01/23 17:02 MCH 31.7 pg (27-33) 12/01/23 17:02 MCHC 33.6 g/dL (30-55) 12/01/23 17:02 RDW 13.9 % (12.1-15.1) 12/01/23 17:02 Plt Count 201 10^3/cmm (157-399) 12/01/23 17:02 MPV 9.8 fL (7.4-10.4) 12/01/23 17:02 Neut % (Auto) 60.4 % 12/01/23 17:02 Lymph % (Auto) 22.9 % 12/01/23 17:02 [place] % (Auto) 10.1 % 12/01/23 17:02 Eos % (Auto) 6.0 % 12/01/23 17:02 Baso % (Auto) 0.4 % 12/01/23 17:02 Neut # (Auto) 3.25 10^3/uL (1.8-7.7) 12/01/23 17:02 Lymph # (Auto) 1.2 10^3/uL (0.8-4.8) 12/01/23 17:02 [place] # (Auto) 0.5 10^3/uL (0.2-0.9) 12/01/23 17:02 Eos # (Auto) 0.3 10^3/uL (0.0-0.8) 12/01/23 17:02 Baso # (Auto) 0.0 10^3/uL (0.0-0.1) 12/01/23 17:02 Nucleated RBC % (auto) 0 % 12/01/23 17:02 Nucleated RBCs # 0.0 /100WBC 12/01/23 17:02 Sodium 140 mmol/L (136-145) 12/01/23 17:02 Potassium 3.7 mmol/L (3.5-5.1) 12/01/23 17:02 Chloride 100 mmol/L (98-107) 12/01/23 17:02 Carbon Dioxide 31 mmol/L (22-29) H 12/01/23 17:02 Anion Gap 12.7 (5-19) 12/01/23 17:02 BUN 12 mg/dL (6-20) 12/01/23 17:02 Creatinine 0.9 mg/dL (0.5-0.9) 12/01/23 17:02 GFR Calculation 64.3 mL/min (90-130) L 12/01/23 17:02 Glucose 83 mg/dL (65-115) 12/01/23 17:02 Calculated Osmolality 289 mOsm/kg (285-295) 12/01/23 17:02 Calcium 8.7 mg/dL (8.5-10.5) 12/01/23 17:02 Total Bilirubin 1.0 mg/dL (0.15-1.2) 12/01/23 17:02 AST 13 U/L (0-32) 12/01/23 17:02 ALT 10 U/L (0-33) 12/01/23 17:02 Alkaline Phosphatase 102 U/L (35-105) 12/01/23 17:02 Troponin T Baseline 8 ng/L (0-10) 12/01/23 17:02 Troponin T 120 Minute 9.19 ng/L (0-10) 12/01/23 18:55 Delta Troponin T 1.19 ABS# (0-10) 12/01/23 18:55 Total Protein 7.0 g/dL (6.6-8.7) 12/01/23 17:02 Albumin 3.9 g/dL (3.5-5.2) 12/01/23 17:02 Globulin 3.1 g/dL (1.3-4.6) 12/01/23 17:02 Discharge Plan Discharge Patient Disposition: Home Clinical Impression: Hypertension, Hypertensive urgency Condition: Stable Prescriptions: New amlodipine 5 mg tablet 5 mg PO DAILY Qty: 30 0RF No Action losartan 100 mg tablet 100 mg PO DAILY fluoxetine 40 mg capsule 40 mg PO DAILY azelastine 137 mcg (0.1 %) aerosol,spray 2 spray intranasal BID Rx Instructions: administer into each nostril furosemide 20 mg tablet 20 mg PO DAILY carvedilol 25 mg tablet 25 mg PO BID Qty: 180 3RF Rx Instructions: must administer with a meal/food aspirin [Aspir-81] 81 mg Tablet,Delayed Release (Dr/Ec) 81 mg PO DAILY PRN (Reason: Chest Pain) fluticasone propion-salmeterol [Wixela Inhub] 500-50 mcg/dose Blister With Device 1 inh INHALATION BID acetaminophen-codeine 300-30 mg tablet 1 tab PO Q6H PRN (Reason: Pain) Qty: 14 0RF levothyroxine 125 mcg tablet 125 mcg PO DAILY alprazolam 1 mg tablet 1 mg PO DAILY PRN (Reason: Anxiety) pramipexole 0.5 mg tablet 1 mg PO BEDTIME albuterol sulfate 90 mcg/actuation HFA aerosol inhaler 2 puff INHALATION BID PRN (Reason: Shortness Of Breath Or Wheezing) fluticasone propionate 50 mcg/actuation spray,suspension 1 spray INTRANASAL DAILY Lasix 20 mg tablet 20 mg PO BID Qty: 30 0RF Rx Instructions: Please take 1 pill twice a day for 5 days and then drop down to 1 pill once a day. Discharge Orders: Discharge ED (Routine); Ordered 12/01/23 Ordered By: Julio Houston Referrals: Daniel Ricci MD [Primary Care Provider] - Patient Instructions: Hypertension (ED), Opioid Safety, Pain Management Activity Restrictions/Additional Instructions: Continue your medications. Log your blood pressures twice daily and show them to your doctor. If blood pressure gets over 150 systolic (the top number), you may take the medication you were prescribed. Return for any worsening shortness of breath, chest discomfort, any other concerning symptoms. See your doctor next week. Coding Level of Care Code ED [employer]rentice for Chg Fwd Documented by User: Julio Houston DO 12/01/23 21:03 HPI - Recheck/Abnormal Lab/Rx 2 General: Chief Complaint: Recheck/Abnormal Lab/Rx Stated Complaint: high blood pressure, SOB Time Seen by Provider: 12/01/23 16:43 [facility] ED 2 [employer]: Medical History (Updated 12/01/23 @ 20:11 by Julio Houston DO) Hypertension Congestive heart failure Course 2 Vital Signs: Vital signs: Vital Signs Temperature 97.8 F 12/01/23 16:28 Pulse Rate 69 12/01/23 20:46 Respiratory Rate 26 H 12/01/23 20:46 Blood Pressure 141/71 12/01/23 20:46 Pulse Oximetry 96 12/01/23 20:46 Oxygen Delivery Me thod Room Air 12/01/23 18:27 MDM - Recheck/Abnormal Lab/Rx Medical Decision Making Care signed out to Dr. Houston at change of shift. See final notes for diagnosis and disposition. 58-year-old female checked out at shift change. She has been short of breath with some chest pressure. She was significantly hypertensive on arrival. She was given medication for this. Blood pressure came down nicely to 141/71. She was given 40 mg of IV Lasix for shortness of breath. She began to diurese well. She feels improved. She will be prescribed amlodipine for blood pressure control if her blood pressure remains high at home. Close outpatient follow-up. CBC was normal. BMP is not remarkable. Troponin did not change at 2 hours and remains normal. Chest x-ray shows enlarged heart, but negative for infiltrate or pulmonary edema. Lab Data 12/01/23 17:02 12/01/23 17:02 Radiology Impressions Chest X-Ray 12/01/23 16:43 IMPRESSION: Cardiomegaly, negative for infiltrate Laboratory Results WBC 5.37 10^3/uL (3.29-11.43) 12/01/23 17:02 RBC 3.75 10^6/uL (3.85-5.65) L 12/01/23 17:02 Hgb 11.90 g/dL (11.27-16.99) 12/01/23 17:02 Hct 35.4 % (36-47) L 12/01/23 17:02 MCV 94.4 fl (85-98) 12/01/23 17:02 MCH 31.7 pg (27-33) 12/01/23 17:02 MCHC 33.6 g/dL (30-55) 12/01/23 17:02 RDW 13.9 % (12.1-15.1) 12/01/23 17:02 Plt Count 201 10^3/cmm (157-399) 12/01/23 17:02 MPV 9.8 fL (7.4-10.4) 12/01/23 17:02 Neut % (Auto) 60.4 % 12/01/23 17:02 Lymph % (Auto) 22.9 % 12/01/23 17:02 [place] % (Auto) 10.1 % 12/01/23 17:02 Eos % (Auto) 6.0 % 12/01/23 17:02 Baso % (Auto) 0.4 % 12/01/23 17:02 Neut # (Auto) 3.25 10^3/uL (1.8-7.7) 12/01/23 17:02 Lymph # (Auto) 1.2 10^3/uL (0.8-4.8) 12/01/23 17:02 [place] # (Auto) 0.5 10^3/uL (0.2-0.9) 12/01/23 17:02 Eos # (Auto) 0.3 10^3/uL (0.0-0.8) 12/01/23 17:02 Baso # (Auto) 0.0 10^3/uL (0.0-0.1) 12/01/23 17:02 Nucleated RBC % (auto) 0 % 12/01/23 17:02 Nucleated RBCs # 0.0 /100WBC 12/01/23 17:02 Sodium 140 mmol/L (136-145) 12/01/23 17:02 Potassium 3.7 mmol/L (3.5-5.1) 12/01/23 17:02 Chloride 100 mmol/L (98-107) 12/01/23 17:02 Carbon Dioxide 31 mmol/L (22-29) H 12/01/23 17:02 Anion Gap 12.7 (5-19) 12/01/23 17:02 BUN 12 mg/dL (6-20) 12/01/23 17:02 Creatinine 0.9 mg/dL (0.5-0.9) 12/01/23 17:02 GFR Calculation 64.3 mL/min (90-130) L 12/01/23 17:02 Glucose 83 mg/dL (65-115) 12/01/23 17:02 Calculated Osmolality 289 mOsm/kg (285-295) 12/01/23 17:02 Calcium 8.7 mg/dL (8.5-10.5) 12/01/23 17:02 Total Bilirubin 1.0 mg/dL (0.15-1.2) 12/01/23 17:02 AST 13 U/L (0-32) 12/01/23 17:02 ALT 10 U/L (0-33) 12/01/23 17:02 Alkaline Phosphatase 102 U/L (35-105) 12/01/23 17:02 Troponin T Baseline 8 ng/L (0-10) 12/01/23 17:02 Troponin T 120 Minute 9.19 ng/L (0-10) 12/01/23 18:55 Delta Troponin T 1.19 ABS# (0-10) 12/01/23 18:55 Total Protein 7.0 g/dL (6.6-8.7) 12/01/23 17:02 Albumin 3.9 g/dL (3.5-5.2) 12/01/23 17:02 Globulin 3.1 g/dL (1.3-4.6) 12/01/23 17:02 All radiology interpretation(s) finalized by discharge Discharge Plan Discharge Patient Disposition: Home Clinical Impression: Hypertension, Hypertensive urgency Condition: Stable Prescriptions: New amlodipine 5 mg tablet 5 mg PO DAILY Qty: 30 0RF No Action losartan 100 mg tablet 100 mg PO DAILY fluoxetine 40 mg capsule 40 mg PO DAILY azelastine 137 mcg (0.1 %) aerosol,spray 2 spray intranasal BID Rx Instructions: administer into each nostril furosemide 20 mg tablet 20 mg PO DAILY carvedilol 25 mg tablet 25 mg PO BID Qty: 180 3RF Rx Instructions: must administer with a meal/food aspirin [Aspir-81] 81 mg Tablet,Delayed Release (Dr/Ec) 81 mg PO DAILY PRN (Reason: Chest Pain) fluticasone propion-salmeterol [Wixela Inhub] 500-50 mcg/dose Blister With Device 1 inh INHALATION BID acetaminophen-codeine 300-30 mg tablet 1 tab PO Q6H PRN (Reason: Pain) Qty: 14 0RF levothyroxine 125 mcg tablet 125 mcg PO DAILY alprazolam 1 mg tablet 1 mg PO DAILY PRN (Reason: Anxiety) pramipexole 0.5 mg tablet 1 mg PO BEDTIME albuterol sulfate 90 mcg/actuation HFA aerosol inhaler 2 puff INHALATION BID PRN (Reason: Shortness Of Breath Or Wheezing) fluticasone propionate 50 mcg/actuation spray,suspension 1 spray INTRANASAL DAILY Lasix 20 mg tablet 20 mg PO BID Qty: 30 0RF Rx Instructions: Please take 1 pill twice a day for 5 days and then drop down to 1 pill once a day. Discharge Orders: Discharge ED (Routine); Ordered 12/01/23 Ordered By: Julio Houston Referrals: Daniel Ricci MD [Primary Care Provider] - Patient Instructions: Hypertension (ED), Opioid Safety, Pain Management Activity Restrictions/Additional Instructions: Continue your medications. Log your blood pressures twice daily and show them to your doctor. If blood pressure gets over 150 systolic (the top number), you may take the medication you were prescribed. Return for any worsening shortness of breath, chest discomfort, any other concerning symptoms. See your doctor next week. Coding Level of Care Code ED [employer]rentice for Yvon Patterson
[2023-12-01 17:51] LABS: Troponin(5th) Baseline 8 ng/L (0-10)
[2023-12-01] MEDS: FUROsemide 10 mg/mL SDV 4mL 40 MG IVP (19:03)
[2023-12-01 19:19] LABS: Troponin 5 2HR 9.19 ng/L (0-10); Troponin 5 2HR Delta 1.19 ABS# (0-10)
== END 2023-12-01 20:48 | disposition home or self-care (01) ==
PROVIDERS: Family Medicine; Emergency Provider Emergency Medicine; PCP Family Medicine
DX: I11.0 Hypertensive heart disease with heart failure (principal); I50.9 Heart failure, unspecified; I16.0 Hypertensive urgency; Z79.82 Long term (current) use of aspirin
CPT/HCPCS: 36415; 71045; 80053; 84484; 85025; 93005; 96374; 96375; 99285; J0360; J1940

== ENCOUNTER → 2024-01-01 17:53 | Outpatient (BNVA) | payer MEDICAID, SELFPAY | PROVIDERS: PCP Family Medicine; Visit Provider Nurse Practitioner | DX: M25.531 Pain in right wrist (principal); M25.521 Pain in right elbow; Z91.81 History of falling | CPT/HCPCS: 73090 ==

== ENCOUNTER → 2024-01-02 11:53 | Outpatient (BNVA) | payer MEDICAID, SELFPAY | PROVIDERS: PCP Family Medicine; Visit Provider Specialist | DX: S52.124A Nondisplaced fracture of head of right radius, initial encounter for closed fracture; S69.91XA Unspecified injury of right wrist, hand and finger(s), initial encounter; W01.0XXA Fall on same level from slipping, tripping and stumbling without subsequent striking against object, initial encounter | CPT/HCPCS: 73080; 73110 ==

== ENCOUNTER → 2024-01-28 15:00 | Outpatient (BNVA) | payer MEDICAID, SELFPAY | PROVIDERS: PCP Family Medicine; Visit Provider Specialist | DX: T14.8XXA Other injury of unspecified body region, initial encounter (principal); S52.124D Nondisplaced fracture of head of right radius, subsequent encounter for closed fracture with routine healing; S59.901D Unspecified injury of right elbow, subsequent encounter; X58.XXXD Exposure to other specified factors, subsequent encounter | CPT/HCPCS: 73080 ==

== ENCOUNTER 2024-02-15 15:16 | Outpatient (CLI) | payer MEDICARE, MEDICAID, SELFPAY ==
--- NOTE | 2024-02-15 15:27 | MM_ITS ---
WS: [id number] BILATERAL 3D TOMOSYNTHESIS DIGITAL SCREENING MAMMOGRAM WITH CAD CLINICAL INFORMATION: SCREEN HISTORY: Screening mammogram. LEFT breast hematoma. COMPARISON: 2019 TECHNIQUE: Bilateral CC and MLO views. FINDINGS: Fatty-replaced breasts bilaterally. Irregular spiculated lesion in the lower inner LEFT breast with c entral nodule measuring 10 mm. Recommend further evaluation with LEFT breast diagnostic mammography a nd ultrasound. In addition slightly spiculated nodule subareolar RIGHT breast was present in 2019 but not previously evaluated. Recommend RIGHT breast diagnostic mammography and ultrasound. MM/[place] [id number] IMPRESSION: BI-RADS: 0-Incomplete: Need additional imaging evaluation FOLLOW UP: Need Additional Imaging Recommend bilateral diagnostic mammography and ultrasound described above
== END 2024-02-15 15:17 | disposition home or self-care (01) ==
LOC: RAD 15:18
PROVIDERS: PCP Family Medicine; Visit Provider Family Medicine
DX: Z12.31 Encounter for screening mammogram for malignant neoplasm of breast (principal); R92.313 Mammographic fatty tissue density, bilateral breasts; N63.20 Unspecified lump in the left breast, unspecified quadrant; N63.10 Unspecified lump in the right breast, unspecified quadrant
CPT/HCPCS: 77063; 77067

== ENCOUNTER 2024-03-03 10:56 | Outpatient (CLI) | payer MEDICARE, MEDICAID, SELFPAY ==
--- NOTE | 2024-03-03 11:06 | USCV_ITS ---
Mylene Moran Age: 58 Gender: F : 1965 Exam Date: 03/03/2024 11:14 Ordering Phys: Ilene Velásquez DO Technologist: CT Exam Location: [facility] [place]_ Indication: chf BP: 173 / 97 HR: 51 Rhythm: Sinus Technical Quality: Adequate MEASUREMENTS (Male / Female) Normal Values 2D ECHO LVOT Diameter 2.4 cm LV Ejection Fraction MOD 2C 63.5 % LV Ejection Fraction 2C AL 64.8 % LA Diameter 4.6 cm RA Systolic Volume 4C AL 46.6 ml RA Systolic Volume 4C MOD 45.3 ml LA Sys Volume AL 64.8 cm cubed LA Sys Volume Index AL 25.5 cm cubed/m squared Aorta at Sinotubular Diameter 2.9 cm IVC Diameter 2.0 cm M-MODE LA Ao Ratio MM 2.1 AV Cusp Separation MM 2.3 cm DOPPLER AV Peak Velocity 146.0 cm/s LVOT Peak Velocity 124.0 cm/s AV Area Cont Eq vti 4.2 cm squared AV Area Cont Eq pk 3.9 cm squared MV Peak Velocity 99.0 cm/s MV Area PHT 3.6 cm squared Mitral E to A Ratio 1.3 Right Atrial Pressure 3.0 mmHg PV Peak Velocity 102.5 cm/s FINDINGS Left Ventricle Normal left ventricular size and systolic function, EF 65%.no regional wall motion abnormalities. Right Ventricle Appears to be normal size ejection fraction Right Atrium Appears to be of normal size Left Atrium Mildly increased left atrial size. Mitral Valve Mild mitral valve regurgitation. Aortic Valve Thickened aortic valve. Trace aortic valve regurgitation. Tricuspid Valve Tricuspid valve not well visualized. Pulmonic Valve Pulmonic valve not well visualized. Pericardium Normal pericardium without effusion. Aorta Normal ascending aorta dimension. IVC Normal inferior vena cava. CONCLUSIONS Normal left ventricular size and systolic function, EF 65%.no regional wall motion abnormalities. Mildly increased left atrial size. Mild mitral valve regurgitation. Thickened aortic valve. Trace aortic valve regurgitation. Tricuspid valve not well visualized. There is no pericardial effusion. There are no intracardiac masses. No similar previous studies are available for comparison Dr Meagan Velasquez MD [facility] (Electronically Signed) Final Date: 03 March 2024 23:26 S
== END 2024-03-03 10:57 | disposition home or self-care (01) ==
LOC: RAD 11:01
PROVIDERS: PCP Family Medicine; Visit Provider Family Medicine
DX: I35.2 Nonrheumatic aortic (valve) stenosis with insufficiency (principal)
CPT/HCPCS: 93306

== ENCOUNTER 2024-03-31 10:38 | Emergency (ER) | payer MEDICARE, MEDICAID, SELFPAY ==
[2024-03-31 10:45] VITALS: BP 176/104; PULSE 54; TEMP 36.8; O2SAT 98; BMI 45.2
--- NOTE | 2024-03-31 11:13 | ECG_ITS ---
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 Measurements Intervals [place] Rate: 56 P: -2 [place]: 153 QRS: -4 QRSD: 98 T: 21 QT: 421 QTc: 406 Interpretive Statements SINUS BRADYCARDIA VOLTAGE CRITERIA FOR LVH [MEETS CRITERIA IN ONE OF: R(aVL), S(V1), R(V5), R(V5/V6)+S(V1)] INTERPRETATION BASED ON A DEFAULT AGE OF 40 YEARS Compared to ECG 12/01/2023 16:36:55 No significant changes Electronically Signed On 03-31-2024 14:31:24 CDT by Rene Allison M.D. [email or web address] f
--- NOTE | 2024-03-31 11:13 | XR_ITS ---
WS: [id number] PORTABLE CHEST HISTORY: sob COMPARISON: 12/01/2023 Lungs are clear and well expanded. No pleural effusion or pneumothorax. Cardiac size: Mildly enlarged cardiac silhouette. Mediastinum/Aorta: Normal mediastinum. No osseous abnormality seen. XR/XR chest 1V portable [id number] IMPRESSION: Mild cardiomegaly. Otherwise negative.
[2024-03-31 12:16] VITALS: BP 156/68; PULSE 51; RESP 18; O2SAT 98
[2024-03-31 12:19] VITALS: BP 156/68; PULSE 50; RESP 18; O2SAT 98
--- NOTE | 2024-03-31 12:26 | ED_ITS ---
HPI - SOB/Dyspnea 2 General: Chief Complaint: Shortness of Breath/Dyspnea Stated Complaint: sob, left arm pain Time Seen by Provider: 03/31/24 11:11 Source: patient Mode of arrival: ambulatory Limitations: no limitations History of Present Illness: HPI Narrative: 58-year-old female with a history of CHF states she had been traveling over the weekend had some increasing shortness of breath and swelling in bilateral legs. States she did take 40 Lasix this morning and has had some slight improvement denies any chest pain denies any cough denies any fevers. Denies any worsening improving factors Associated symptoms: Deny abdominal pain, chest pain, fever(s), nausea or vomiting Review of Systems 2 Const: Denies: fever(s), chills, body aches or change in appetite ENMT: Denies: throat pain or dental pain Card: Denies: chest pain Resp: Reports: dyspnea GI: Denies: abdominal pain, nausea, vomiting or diarrhea Musc: Reports: extremity swelling; Denies: neck pain or back pain Skin/Breast: Denies: rash Neuro: Denies: headache(s) PFSH ED 2 PFSH: Medical History Hypertension Congestive heart failure Social History Smoking and tobacco/nicotine status: unknown if used tobacco/nicotine Physical Exam 2 Const: COMMON NORMALS: no acute distress, patient oriented x3 and healthy appearing HENMT: COMMON NORMALS: normocephalic and atraumatic HEAD & SCALP: n ormocephalic and atraumatic Neck/C-Spine: COMMON NORMALS: full ROM and supple Chest: COMMONS NORMALS: normal inspection of the chest Resp: COMMON NORMALS: normal respiratory effort, No retractions, No use of accessory muscles and clear to auscultation bilaterally AUSCULTATION: clear to auscultation bilaterally Cardio: COMMON NORMALS: regular rate, regular rhythm and No murmurs present (Cardio) RATE: regular rate RHYTHM: regular rhythm Extremity: COMMON NORMALS: full ROM NARRATIVE EXTREMITY EXAM: 2+ lower extremity edema Neuro: COMMON NORMALS: patient oriented x3, moves all extremities and no focal motor deficits Psych: COMMON NORMALS: mental status grossly normal, Normal thought process present and cooperative THOUGHT PROCESS: Normal thought process present Skin: COMMON NORMALS: no rashes or lesions noted and no wounds GENERAL SKIN EXAM: no rashes or lesions noted Course 2 Vital Signs: Vital signs: Vital Signs Temperature 98.2 F 03/31/24 10:45 Pulse Rate 56 L 03/31/24 12:30 Respiratory Rate 18 03/31/24 12:19 Blood Pressure 159/80 03/31/24 12:30 Pulse Oximetry 99 03/31/24 12:30 Oxygen Delivery Me thod Room Air 03/31/24 12:30 MDM - SOB/Dyspnea Medical Decision Making Patient presents here with patient presents here with shortness of breath along with some lower extremity edema likely from her congestive heart failure she is no signs of pulmonary edema x-rays normal she has no signs of pulmonary embolism. I did give her IM Lasix here she is to continue her Lasix she is stable for discharge follow-up with PCP. Medical Records I reviewed the patient's medical records. Lab Data I reviewed the patient's lab results. 03/31/24 12:34 03/31/24 12:34 Labs/Radiology: Radiology Impressions Chest X-Ray 03/31/24 11:13 IMPRESSION: Mild cardiomegaly. Otherwise negative. Laboratory Results WBC 5.33 10^3/uL (3.29-11.43) 03/31/24 12:34 RBC 3.93 10^6/uL (3.85-5.65) 03/31/24 12:34 Hgb 12.50 g/dL (11.27-16.99) 03/31/24 12:34 Hct 37.8 % (36-47) 03/31/24 12:34 MCV 96.2 fl (85-98) 03/31/24 12:34 MCH 31.8 pg (27-33) 03/31/24 12:34 MCHC 33.1 g/dL (30-55) 03/31/24 12:34 RDW 14.3 % (12.1-15.1) 03/31/24 12:34 Plt Count 166 10^3/cmm (157-399) 03/31/24 12:34 MPV 10.1 fL (7.4-10.4) 03/31/24 12:34 Neut % (Auto) 65.8 % 03/31/24 12:34 Lymph % (Auto) 21.6 % 03/31/24 12:34 Dare % (Auto) 7.1 % 03/31/24 12:34 Eos % (Auto) 4.7 % 03/31/24 12:34 Baso % (Auto) 0.4 % 03/31/24 12:34 Neut # (Auto) 3.51 10^3/uL (1.8-7.7) 03/31/24 12:34 Lymph # (Auto) 1.2 10^3/uL (0.8-4.8) 03/31/24 12:34 Dare # (Auto) 0.4 10^3/uL (0.2-0.9) 03/31/24 12:34 Eos # (Auto) 0.3 10^3/uL (0.0-0.8) 03/31/24 12:34 Baso # (Auto) 0.0 10^3/uL (0.0-0.1) 03/31/24 12:34 Nucleated RBC % (auto) 0 % 03/31/24 12:34 Nucleated RBCs # 0.0 /100WBC 03/31/24 12:34 Sodium 141 mmol/L (136-145) 03/31/24 12:34 Potassium 4.1 mmol/L (3.5-5.1) 03/31/24 12:34 Chloride 102 mmol/L (98-107) 03/31/24 12:34 Carbon Dioxide 29 mmol/L (22-29) 03/31/24 12:34 Anion Gap 14.1 (5-19) 03/31/24 12:34 BUN 15 mg/dL (6-20) 03/31/24 12:34 Creatinine 0.8 mg/dL (0.5-0.9) 03/31/24 12:34 GFR Calculation 73.7 mL/min (90-130) L 03/31/24 12:34 Glucose 103 mg/dL (65-115) 03/31/24 12:34 Calculated Osmolality 293 mOsm/kg (285-295) 03/31/24 12:34 Calcium 9.0 mg/dL (8.5-10.5) 03/31/24 12:34 Total Bilirubin 0.8 mg/dL (0.15-1.2) 03/31/24 12:34 AST 13 U/L (0-32) 03/31/24 12:34 ALT 12 U/L (0-33) 03/31/24 12:34 Alkaline Phosphatase 97 U/L (35-105) 03/31/24 12:34 NT-Pro-B Natriuret Pep 1175 pg/mL (0-125) H 03/31/24 12:34 Total Protein 6.8 g/dL (6.6-8.7) 03/31/24 12:34 Albumin 4.0 g/dL (3.5-5.2) 03/31/24 12:34 Globulin 2.8 g/dL (1.3-4.6) 03/31/24 12:34 All radiology interpretation(s) finalized by discharge Discharge Plan Discharge Patient Disposition: Home Clinical Impression: Congestive heart failure Condition: Stable Prescriptions: No Action (DME) hindged elbow brace See Rx Instructions .Route .MEDSUPPLY Qty: 1 0RF Rx Instructions: As directed (DME) cock up wrist splint, right See Rx Instructions .Route .MEDSUPPLY Qty: 1 0RF Rx Instructions: As directed fluticasone propionate [Flonase Allergy Relief] 50 mcg/actuation spray,suspension 2 spray intranasal DAILY Qty: 16 0RF Rx Instructions: administer into each nostril albuterol sulfate 90 mcg/actuation HFA aerosol inhaler 2 puff INHALATION BID PRN (Reason: Shortness Of Breath Or Wheezing) Qty: 6.7 0RF losartan 100 mg tablet 100 mg PO DAILY fluoxetine 40 mg capsule 40 mg PO DAILY azelastine 137 mcg (0.1 %) aerosol,spray 2 spray intranasal BID PRN (Reason: ALLERGIES) Rx Instructions: administer into each nostril furosemide 20 mg tablet 20 mg PO DAILY carvedilol 25 mg tablet 25 mg PO BID Qty: 180 3RF Rx Instructions: must administer with a meal/food aspirin [Aspir-81] 81 mg Tablet,Delayed Release (Dr/Ec) 81 mg PO DAILY PRN (Reason: Chest Pain) fluticasone propion-salmeterol [Wixela Inhub] 500-50 mcg/dose Blister With Device 1 inh INHALATION BID acetaminophen-codeine 300-30 mg tablet 1 tab PO Q6H PRN (Reason: Pain) Qty: 14 0RF tizanidine 4 mg tablet 4 mg PO Q8H PRN (Reason: Spasms) levothyroxine 150 mcg tablet 150 mcg PO QAM Zepbound 2.5 mg/0.5 mL pen injector 2.5 mg SUBCUT Q7D Zyrtec 10 mg tablet 10 mg PO DAILY PRN (Reason: ALLERGIES) amlodipine 5 mg tablet 5 mg PO DAILY PRN (Reason: HYPERTENTION OR ANGINA) alprazolam 1 mg tablet 1 mg PO DAILY PRN (Reason: Anxiety) pramipexole 0.5 mg tablet See Rx Instructions .ROUTE .COMPLEX Rx Instructions: TAKE 1 TABLET IN THE MORNING AND 2 TABLETS AT BEDTIME. furosemide [Lasix] 20 mg tablet 20 mg PO BID Qty: 30 0RF Discharge Orders: Discharge ED (Routine); Ordered 03/31/24 Ordered By: Millie Power Referrals: Ilene Velásquez DO [Primary Care Provider] - 4-7 days Discharge Diet: Advance as tolerated Discharge Activity: Resume usual activity Patient Instructions: Heart Failure (ED) Coding Level of Care Code ED Wound Care Rn for Yvon Patterson
[2024-03-31 12:30] VITALS: BP 159/80; PULSE 56; O2SAT 99
[2024-03-31 12:52] LABS: Basophils % 0.4 %; Eosinophils # 0.3 10^3/uL (0.0-0.8); Eosinophils % 4.7 %; Hematocrit 37.8 % (36-47); Lymphocytes # 1.2 10^3/uL (0.8-4.8); Lymphocytes % 21.6 %; Mean Corpuscular HGB Conc 33.1 g/dL (30-55); Mean Corpuscular Hemoglobin 31.8 pg (27-33); Mean Corpuscular Volume 96.2 fl (85-98); Mean Platelet Volume 10.1 fL (7.4-10.4); Monocytes # 0.4 10^3/uL (0.2-0.9); Monocytes % 7.1 %; Neutrophils # 3.51 10^3/uL (1.8-7.7); Neutrophils % 65.8 %; Nucleated Red Blood Cells % 0 %; Platelet Count 166 10^3/cmm (157-399); Red Blood Count 3.93 10^6/uL (3.85-5.65); Red Cell Distribution Width 14.3 % (12.1-15.1); White Blood Count 5.33 10^3/uL (3.29-11.43)
[2024-03-31 13:21] LABS: Alanine Aminotransferase 12 U/L (0-33); Alkaline Phosphatase 97 U/L (35-105); Anion Gap 14.1 (5-19); Aspartate Amino Transferase 13 U/L (0-32); Blood Urea Nitrogen 15 mg/dL (6-20); Carbon Dioxide 29 mmol/L (22-29); Chloride 102 mmol/L (98-107); Creatinine Clr Calc Pharmacy 108.1744; Globulin 2.8 g/dL (1.3-4.6); Glomerular Filtration Rate 73.7 mL/min (90-130); Glucose 103 mg/dL (65-115); NT Pro B Type Natriuretic Pept 1175 pg/mL (0-125); Osmolality Calculated 293 mOsm/kg (285-295); Potassium 4.1 mmol/L (3.5-5.1); Sodium 141 mmol/L (136-145); Total Bilirubin 0.8 mg/dL (0.15-1.2); Total Protein 6.8 g/dL (6.6-8.7)
[2024-03-31] MEDS: FUROsemide 10 mg/mL SDV 4mL 40 MG IM (13:41)
[2024-03-31 13:51] VITALS: BP 112/74; PULSE 62; O2SAT 96
== END 2024-03-31 13:52 | disposition home or self-care (01) ==
PROVIDERS: Emergency Provider Emergency Medicine; PCP Family Medicine
DX: I11.0 Hypertensive heart disease with heart failure (principal); I50.9 Heart failure, unspecified; R60.0 Localized edema
CPT/HCPCS: 36415; 71045; 80053; 83880; 85025; 93005; 96372; 99285; J1940

== ENCOUNTER → 2024-04-24 13:12 | Outpatient (BNVA) | payer MEDICARE, MEDICAID, SELFPAY | PROVIDERS: PCP Family Medicine; Referring Provider Family Medicine; Visit Provider Internal Medicine | DX: E06.3 Autoimmune thyroiditis (principal); E27.9 Disorder of adrenal gland, unspecified; E27.40 Unspecified adrenocortical insufficiency; K52.9 Noninfective gastroenteritis and colitis, unspecified; I10 Essential (primary) hypertension; Z98.84 Bariatric surgery status; Z79.890 Hormone replacement therapy | CPT/HCPCS: 36415; 84439; 84443; 84480; 99204 ==

== ENCOUNTER 2024-04-29 12:38 | Oncology outpatient (recurring) (ONCR) | payer MEDICARE, MEDICAID, SELFPAY ==
--- OUTSIDE RECORDS SUMMARY | 2024-04-29 12:41 | XMS_ITS | Patient Health Record ---
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 Role Phone Jero Turner Unavailable [phone] Allergies Allergen (clinical drug ingredient) Drug/Non Drug Allergy documented on EMR Reaction Allergy Type Onset Date Status Rocephin Unknown Drug Allergy Active Compazine Unknown Drug Allergy Active Reason For Referral No Information Medications Medication SIG (Take, Route, Frequency, Duration) Notes Start Date End Date Status Irbesartan-hydroCHLORO thiazide 300-12.5 MG 1 tablet Orally Once a day for 90 Active Sertraline HCl 100 MG 1 tablet Orally Once a day Active Ketorolac Tromethamine 10 MG 1 tablet as needed Orally every 6 hrs Prn Unknown Atorvastatin Calcium 20 MG 1 tablet Orally Once a day Active Tirosint 88 MCG 1 capsule on an empty stomach in the morning Orally Once a day for 30 day(s) 2tab 176mcg once a day Sunday 264 mcg Active Vitamin D3 74063 UNIT 1 capsule Orally Once a day for 30 day(s) Active Amlodipine Besylate 10 MG 1 TABLET BY MOUTH ONCE A DAY for 90 Active Metoprolol Succinate ER 50 MG 1 tablet Orally bid Active Amlodipine Besylate 10 1 TABLET BY MOUTH ONCE A DAY for 30 Active Xanax XR 1 MG 1 tablet in the morning Orally Once a day PRN Active Ventolin HFA 108 (90 Base) MCG/ACT 2 puffs as needed Inhalation every 4 hrs NEEDED Active Hydrocortisone 10 MG 1 tablet with food or milk Orally every 12 hrs for 30 day(s) 1 TAB AM AND 1/2 PM Active Benadryl Allergy 50 1 tablet as needed Orally every 6 hrs NEEDED Active Promethazine HCl 25 MG 1 tablet as neede d Orally every 12 hrs Prn Active cloNIDine HCl 0.1 MG 1 tablet Orally Once a day prn for 90 Active Irbesartan 150 MG 1 tablet Orally Once a day Active Problems Problem Type SNOMED Code ICD Code Onset Dates Problem Status W/U Status Risk Notes Problem Essential hypertension (61247024) Essential (primary) hypertension (I10) Active confirmed HTN NOT WELL CONTROL LED. 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) Active confirmed Problem 15225101 Precordial pain (R07.2) Active confirmed CP- ASSESS FOR CAD AND ISCHEMI A.- NEG DANIEL 07/28 Problem Atrial fibrillation (59548440) A-fib (I48.91) Active confirmed Problem 126727961 Adrenal insufficiency (E27.40) Active confirmed Plan Of Treatment Pending Test Test Name Order Date Electrocardiogram (EKG) 08/27/2017 Insurance Providers Payer Name Payer Address Payer Phone Subscriber Number Group Number Insured Name Patient Relationship to Insured Coverage Start Date Coverage End Date [employer]-CV CP [address] [place] [address] [id number] Dean Mylene Self - patient is the insured Medical (General) History Medical History History ICD Code Heart palpitations Shortness of breath Hypertension Pure hypercholesterolemia Obesity Post bypass sleeve 2012 Surgical History Surgery Date(Month/Year) MILD MR 2014
[2024-04-29] MEDS: cosyntropin 0.25 mg SDV IVP (13:05)
[2024-04-29 13:10] VITALS: BP 157/86; PULSE 63; RESP 16; TEMP 36.6; O2SAT 95
[2024-04-29 13:39] LABS: Cosyntropin Baseline 4.88 mcg/dL
[2024-04-29 14:19] LABS: Cosyntropin 30 Minute 17.06 mcg/dL
[2024-04-29 15:18] LABS: Cosyntropin 1 Hour 20.22 mcg/dL
== END 2024-05-15 09:20 | disposition home or self-care (01) ==
PROVIDERS: PCP Family Medicine; Visit Provider Internal Medicine
DX: E06.3 Autoimmune thyroiditis (principal)
CPT/HCPCS: 82533; J0834

== ENCOUNTER → 2024-05-02 09:58 | Outpatient (BNVA) | payer MEDICARE, MEDICAID, SELFPAY | PROVIDERS: PCP Family Medicine; Visit Provider Internal Medicine | DX: I10 Essential (primary) hypertension (principal); E27.9 Disorder of adrenal gland, unspecified; E06.3 Autoimmune thyroiditis; Z98.84 Bariatric surgery status; E27.40 Unspecified adrenocortical insufficiency; K52.9 Noninfective gastroenteritis and colitis, unspecified; Z79.890 Hormone replacement therapy; Z79.84 Long term (current) use of oral hypoglycemic drugs | CPT/HCPCS: 99214 ==

== ENCOUNTER → 2024-05-06 08:50 | Outpatient (BNVA) | payer MEDICARE, MEDICAID, SELFPAY | PROVIDERS: PCP Family Medicine; Visit Provider Nurse Practitioner Family | DX: I11.0 Hypertensive heart disease with heart failure (principal); I50.9 Heart failure, unspecified; I25.10 Atherosclerotic heart disease of native coronary artery without angina pectoris | CPT/HCPCS: 99214 ==

== ENCOUNTER 2024-05-15 13:11 | Outpatient (CLI) | payer MEDICARE, MEDICAID, SELFPAY ==
--- NOTE | 2024-05-15 13:23 | MM_ITS ---
WS: [id number] BILATERAL 3D TOMOSYNTHESIS DIGITAL DIAGNOSTIC MAMMOGRAPHY WITH CAD CLINICAL INFORMATION: ABNORMAL MAMMOGRAM HISTORY: Additional views COMPARISON: 02/15/2024 TECHNIQUE: Bilateral CC, MLO, and ML views. FINDINGS: Scattered fibroglandular densities bilaterally. Previously described asymmetric density LEFT breast c ompresses out today on the spot compression views. No residual abnormalities in the LEFT breast. Persistent asymmetric density just lateral to the areola RIGHT breast. Ultrasound of this area is pen ding. ULTRASOUND BREAST RIGHT TECHNIQUE: Ultrasound right breast focused area of concern. CLINICAL INFORMATION: ABNORMAL MAMMOGRAM FINDINGS: Ultrasound subareolar RIGHT breast. Incidental dilated duct posterior to the nipple. No suspicious cy stic or solid lesions to target for biopsy. No other abnormalities. MM/[place] [id number] IMPRESSION: DENSITY: There are scattered areas of fibroglandular density. BI-RADS: 2 - Benign. FOLLOW UP: 1 Year Follow-up Recommend return to annual screening mammography.
== END 2024-05-15 13:12 | disposition home or self-care (01) ==
LOC: RAD 13:13
PROVIDERS: PCP Family Medicine; Visit Provider Family Medicine
DX: R92.8 Other abnormal and inconclusive findings on diagnostic imaging of breast (principal); R92.323 Mammographic fibroglandular density, bilateral breasts; N64.89 Other specified disorders of breast
CPT/HCPCS: 76642; 77062; G0279

== ENCOUNTER → 2024-05-23 10:37 | Outpatient (BNVA) | payer MEDICARE, MEDICAID, SELFPAY | PROVIDERS: PCP Family Medicine; Referring Provider Nurse Practitioner Family; Visit Provider Student in an Organized Health Care Education/Training Program | DX: Z12.11 Encounter for screening for malignant neoplasm of colon (principal) | CPT/HCPCS: 99024; 99204 ==

== ENCOUNTER → 2024-06-16 09:53 | Outpatient (BNVA) | payer MEDICARE, MEDICAID, SELFPAY | PROVIDERS: PCP Family Medicine; Visit Provider Internal Medicine | DX: I10 Essential (primary) hypertension (principal); E27.9 Disorder of adrenal gland, unspecified; E06.3 Autoimmune thyroiditis; Z98.84 Bariatric surgery status; K52.9 Noninfective gastroenteritis and colitis, unspecified; G47.33 Obstructive sleep apnea (adult) (pediatric); Z79.85 Long-term (current) use of injectable non-insulin antidiabetic drugs; Z79.890 Hormone replacement therapy | CPT/HCPCS: 99214 ==

== ENCOUNTER 2024-08-12 20:00 | Outpatient (CLI) | payer MEDICARE, MEDICAID, SELFPAY | END 2024-08-12 20:01 | disposition home or self-care (01) | LOC: SLEEP 23:21 | PROVIDERS: PCP Family Medicine; Visit Provider Family Medicine | DX: G47.33 Obstructive sleep apnea (adult) (pediatric) (principal); Z99.89 Dependence on other enabling machines and devices | CPT/HCPCS: 95811 ==

== ENCOUNTER 2024-09-08 04:14 | Emergency (ER) | payer MEDICARE, MEDICAID, SELFPAY ==
[2024-09-08 04:25] VITALS: BP 216/102; PULSE 70; RESP 22; TEMP 36.8; O2SAT 98; BMI 45.2
[2024-09-08 04:40] VITALS: BP 179/85
[2024-09-08] MEDS: cloNIDine 0.1 mg Tablet 0.2 MG PO (04:40)
--- NOTE | 2024-09-08 04:51 | ECG_ITS ---
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 Measurements Intervals [place] Rate: 60 P: 9 OR: 163 QRS: 11 QRSD: 97 T: 34 QT: 424 QTc: 427 Interpretive Statements SINUS RHYTHM POSSIBLE LEFT VENTRICULAR HYPERTROPHY [VOLTAGE CRITERIA PLUS LAE OR QRS WIDENING] POSSIBLE ANTERIOR MYOCARDIAL INFARCTION , PROBABLY OLD [30 ms Q WAVE IN V3/V4, OR R < 0.2 mV IN V4] Compared to ECG 03/31/2024 10:43:23 Myocardial infarct finding now present Sinus bradycardia no longer present Electronically Signed On 09-08-2024 16:35:25 MINING ENGINEERING TECHNOLOGIST by Norman Cole M.D. [id number]
[2024-09-08 04:53] LABS: Basophils % 0.5 %; Eosinophils # 0.3 10^3/uL (0.0-0.8); Eosinophils % 5.1 %; Hematocrit 36.4 % (36-47); Lymphocytes # 1.6 10^3/uL (0.8-4.8); Lymphocytes % 28.3 %; Mean Corpuscular HGB Conc 33.8 g/dL (30-55); Mean Corpuscular Hemoglobin 31.7 pg (27-33); Mean Corpuscular Volume 93.8 fl (85-98); Mean Platelet Volume 9.9 fL (7.4-10.4); Monocytes # 0.4 10^3/uL (0.2-0.9); Monocytes % 7.3 %; Neutrophils # 3.23 10^3/uL (1.8-7.7); Neutrophils % 58.6 %; Nucleated Red Blood Cells % 0 %; Platelet Count 177 10^3/cmm (157-399); Red Blood Count 3.88 10^6/uL (3.85-5.65); Red Cell Distribution Width 14.1 % (12.1-15.1); White Blood Count 5.51 10^3/uL (3.29-11.43)
--- NOTE | 2024-09-08 04:55 | W.ED.GENADLT ---
HPI - General Adult General: Chief complaint: General Medical Stated complaint: BLood Pressure High\Headache\SOB Time Seen by Provider: 09/08/24 04:25 History of Present Illness: Presents to the ER with complaints of high blood pressure and headache. Her blood pressure is fairly normally controlled usually she said yesterday Increasing until he got over 200 this morning so she decided to come in. Patient is also having a headache. No other complaints at this time. Per the record patient does take 25 mg of carvedilol, 20 mg of Lasix, 100 mg of losartan Related Data Home Medications Medication Instructions Recorded Confirmed alprazolam 1 mg tablet 1 mg PO DAILY PRN Anxiety 12/19/22 06/16/24 pramipexole 0.5 mg tablet See Rx Instructions .Route .COMPLEX 12/19/22 06/16/24 azelastine 137 mcg (0.1 %) nasal 2 spray intranasal BID PRN 07/03/23 06/16/24 spray ALLERGIES fluoxetine 40 mg capsule 40 mg PO DAILY 07/03/23 06/16/24 furosemide 20 mg tablet 20 mg PO DAILY 07/03/23 06/16/24 aspirin 81 mg tablet,delayed 81 mg PO DAILY PRN Chest Pain 07/20/23 06/16/24 release fluticasone 500 mcg-salmeterol 50 1 inh inhalation BID 07/20/23 06/16/24 mcg/dose blistr powdr for inhalation (Wixela Inhub) levothyroxine 150 mcg tablet 150 mcg PO QAM 03/31/24 06/16/24 losartan 100 mg tablet 100 mg PO DAILY 05/06/24 06/16/24 Previous Rx's Medication Instructions Recorded albuterol sulfate 90 mcg/actuation 2 puff inhalation BID PRN 03/04/24 aerosol inhaler Shortness Of Breath Or Wheezing #6.7 grams fluticasone propionate 50 2 spray intranasal DAILY #16 grams 03/04/24 mcg/actuation nasal spray,suspension (Flonase Allergy Relief) exenatide 10 mcg/dose(250 10 mcg (0.04 mL) SUBCUT BID #2.4 mL 05/05/24 mcg/mL)2.4 mL subcutaneous pen injector (Byetta) carvedilol 25 mg tablet See Rx Instructions .Route 06/04/24 .COMPLEX #180 tabs tirzepatide 2.5 mg/0.5 mL See Rx Instructions .Route 06/10/24 subcutaneous pen injector .COMPLEX #2 mL (Prashantunkarla) exenatide 5 mcg/dose (250 5 mcg (0.02 mL) SUBCUT BID #1.2 mL 06/16/24 mcg/mL)1.2 mL subcutaneous pen injector (Byetta) Allergies Allergy/AdvReac Type Severity Reaction Status Date / Time ceftriaxone [From Rocephin] Allergy ALGY-Rash Verified 09/08/24 04:36 metoclopramide [From Reglan] Allergy Unknown Verified 09/08/24 04:36 prochlorperazine Allergy Unknown Verified 09/08/24 04:36 [From Compazine] Review of Systems General: Reports: 10 or more systems reviewed and unremarkable except in HPI and below PFSH ED PFSH: Medical History Coronary artery disease Hypertension Congestive heart failure Family History Mother Diabetes Stroke Brother Diabetes Heart disease Social History Smoking and tobacco/nicotine status: never used tobacco/nicotine Second hand smoke exposure: No Alcohol intake: never Substance/Drug Use: never Physical Exam Const: COMMON NORMALS: no acute distress, average body habitus, patient oriented x3, no limitations, healthy appearing, alert and well nourished HENMT: COMMON NORMALS: normocephalic, atraumatic, hearing grossly normal bilaterally, external ears normal, Normal external nose present and moist oral mucous membranes HEAD & SCALP: normocephalic and atraumatic NOSE: Normal external nose present EXTERNAL EAR: Yes external ears normal Neck/C-Spine: COMMON NORMALS: no JVD Chest: COMMONS NORMALS: normal inspection of the chest and normal palpation of entire chest wall Resp: COMMON NORMALS: normal respiratory effort, No retractions, No use of accessory muscles and clear to auscultation bilaterally AUSCULTATION: clear to auscultation bilaterally Cardio: COMMON NORMALS: no JVD, regular rate, regular rhythm, S1 normal heart sound present, S2 normal heart sound present, No gallops present (Cardio), No clicks present (Cardio), No murmurs present (Cardio) and No rub (Cardio) RATE: regular rate RHYTHM: regular rhythm HEART SOUNDS: S1 normal heart sound present and S2 normal heart sound present GI: COMMON NORMALS: Normal to inspection, nondistended, normoactive bowel sounds present, Soft to palpation, non-tender, No hepatosplenomegaly present and no masses PALPATION: Yes Soft to palpation and Yes No hepatosplenomegaly present Neuro: COMMON NORMALS: patient oriented x3 SENSORIUM/ORIENTATION: Yes alert Course Vital Signs: Vital signs: Vital Signs Temperature 98.3 F 09/08/24 04:25 Pulse Rate 70 09/08/24 04:25 Respiratory Rate 22 H 09/08/24 04:25 Blood Pressure 179/85 09/08/24 04:40 Pulse Oximetry 98 09/08/24 04:25 Oxygen Delivery Me thod Room Air 09/08/24 04:25 MDM - General Adult Medical Decision Making Patient was given clonidine 0.2 mg, and her blood pressure decreased down to 169/77, patient says her headache is improved. Patient be discharged home Medical Records I reviewed the patient's medical records. Lab Data I reviewed the patient's lab results. 09/08/24 04:35 09/08/24 04:35 Laboratory Results WBC 5.51 10^3/uL (3.29-11.43) 09/08/24 04:35 RBC 3.88 10^6/uL (3.85-5.65) 09/08/24 04:35 Hgb 12.30 g/dL (11.27-16.99) 09/08/24 04:35 Hct 36.4 % (36-47) 09/08/24 04:35 MCV 93.8 fl (85-98) 09/08/24 04:35 MCH 31.7 pg (27-33) 09/08/24 04:35 MCHC 33.8 g/dL (30-55) 09/08/24 04:35 RDW 14.1 % (12.1-15.1) 09/08/24 04:35 Plt Count 177 10^3/cmm (157-399) 09/08/24 04:35 MPV 9.9 fL (7.4-10.4) 09/08/24 04:35 Neut % (Auto) 58.6 % 09/08/24 04:35 Lymph % (Auto) 28.3 % 09/08/24 04:35 [place] % (Auto) 7.3 % 09/08/24 04:35 Eos % (Auto) 5.1 % 09/08/24 04:35 Baso % (Auto) 0.5 % 09/08/24 04:35 Neut # (Auto) 3.23 10^3/uL (1.8-7.7) 09/08/24 04:35 Lymph # (Auto) 1.6 10^3/uL (0.8-4.8) 09/08/24 04:35 [place] # (Auto) 0.4 10^3/uL (0.2-0.9) 09/08/24 04:35 Eos # (Auto) 0.3 10^3/uL (0.0-0.8) 09/08/24 04:35 Baso # (Auto) 0.0 10^3/uL (0.0-0.1) 09/08/24 04:35 Nucleated RBC % (auto) 0 % 09/08/24 04:35 Nucleated RBCs # 0.0 /100WBC 09/08/24 04:35 Sodium 140 mmol/L (136-145) 09/08/24 04:35 Potassium 3.5 mmol/L (3.5-5.1) 09/08/24 04:35 Chloride 101 mmol/L (98-107) 09/08/24 04:35 Carbon Dioxide 30 mmol/L (22-29) H 09/08/24 04:35 Anion Gap 12.5 (5-19) 09/08/24 04:35 BUN 11 mg/dL (6-20) 09/08/24 04:35 Creatinine 0.9 mg/dL (0.5-0.9) 09/08/24 04:35 GFR Calculation 64.1 mL/min (90-130) L 09/08/24 04:35 Glucose 97 mg/dL (65-115) 09/08/24 04:35 Calculated Osmolality 289 mOsm/kg (285-295) 09/08/24 04:35 Calcium 8.9 mg/dL (8.5-10.5) 09/08/24 04:35 Total Bilirubin 1.0 mg/dL (0.15-1.2) 09/08/24 04:35 AST 15 U/L (0-32) 09/08/24 04:35 ALT 11 U/L (0-33) 09/08/24 04:35 Alkaline Phosphatase 106 U/L (35-105) H 09/08/24 04:35 Total Protein 6.7 g/dL (6.6-8.7) 09/08/24 04:35 Albumin 4.0 g/dL (3.5-5.2) 09/08/24 04:35 Globulin 2.7 g/dL (1.3-4.6) 09/08/24 04:35 All radiology interpretation(s) finalized by discharge Discharge Plan Discharge Patient Disposition: Home Clinical Impression: Hypertension Qualifiers: Hypertension type: primary hypertension Qualified Code(s): I10 - Essential (primary) hypertension Headache Qualifiers: Headache type: unspecified Headache chronicity pattern: acute headache Intractability: not intractable Qualified Code(s): R51.9 - Headache, unspecified Condition: Stable Prescriptions: No Action fluticasone propionate [Flonase Allergy Relief] 50 mcg/actuation spray,suspension 2 spray intranasal DAILY Qty: 16 0RF Rx Instructions: administer into each nostril albuterol sulfate 90 mcg/actuation HFA aerosol inhaler 2 puff INHALATION BID PRN (Reason: Shortness Of Breath Or Wheezing) Qty: 6.7 0RF fluoxetine 40 mg capsule 40 mg PO DAILY azelastine 137 mcg (0.1 %) aerosol,spray 2 spray intranasal BID PRN (Reason: ALLERGIES) Rx Instructions: administer into each nostril furosemide 20 mg tablet 20 mg PO DAILY losartan 100 mg tablet 100 mg PO DAILY Rx Instructions: Take 1/2 in the AM, 1/2 at night Byetta 5 mcg/dose (250 mcg/mL) 1.2 mL pen injector 5 mcg SUBCUT BID Qty: 1.2 0RF Rx Instructions: take 5mcg 2x/day before meals for one month Byetta 10 mcg/dose(250 mcg/mL) 2.4 mL pen injector 10 mcg SUBCUT BID Qty: 2.4 0RF Rx Instructions: take 10mcg 2x/day before meals carvedilol 25 mg tablet See Rx Instructions .ROUTE .COMPLEX Qty: 180 3RF Dose Instruction: TAKE 1 TABLET BY MOUTH TWICE A DAY MUST ADMINISTER WITH A MEAL/FOOD Rx Instructions: TAKE 1 TABLET BY MOUTH TWICE A DAY MUST ADMINISTER WITH A MEAL/FOOD Mounjaro 2.5 mg/0.5 mL pen injector See Rx Instructions .ROUTE .COMPLEX Qty: 2 0RF Dose Instruction: INJECT 1 PEN SUBCUTANEOUSLY EVERY 7 DAYS Rx Instructions: INJECT 1 PEN SUBCUTANEOUSLY EVERY 7 DAYS aspirin [Aspir-81] 81 mg Tablet,Delayed Release (Dr/Ec) 81 mg PO DAILY PRN (Reason: Chest Pain) fluticasone propion-salmeterol [Wixela Inhub] 500-50 mcg/dose Blister With Device 1 inh INHALATION BID levothyroxine 150 mcg tablet 150 mcg PO QAM alprazolam 1 mg tablet 1 mg PO DAILY PRN (Reason: Anxiety) pramipexole 0.5 mg tablet See Rx Instructions .ROUTE .COMPLEX Rx Instructions: TAKE 1 TABLET IN THE MORNING AND 2 TABLETS AT BEDTIME. Discharge Orders: Discharge ED (Routine); Ordered 09/08/24 Ordered By: Ramesh Gordillo Referrals: Ilene Velásquez DO [Primary Care Provider] - Patient Instructions: Hypertension (ED), Headache Activity Restrictions/Additional Instructions: You are given clonidine in ER to lower your blood pressure. This also improved your headache. Please keep a blood pressure log and take it to your follow-up with your family practice physician within the next 7 days for further evaluation and treatment. You may benefit from a medicine change. Thank you for choosing [facility] for your healthcare needs today. Please realize that you were seen in the emergency department and that we are providing you with an emergency medical screening exam and this may not be a complete and all exclusive of all testing and/or medical workup we may need to determine your element or severity of your illness. It is very important that you follow-up as instructed with your primary care provider or specialist for the additional evaluation and to discuss your medical treatment plan. You may return to the emergency department should you have concerns or if your condition changes or worsens in any way. Coding Level of Care Code ED Medical Technologist Microbiology for Yvon Patterson
[2024-09-08 05:10] LABS: Alanine Aminotransferase 11 U/L (0-33); Alkaline Phosphatase 106 U/L (35-105); Anion Gap 12.5 (5-19); Aspartate Amino Transferase 15 U/L (0-32); Blood Urea Nitrogen 11 mg/dL (6-20); Calcium 8.9 mg/dL (8.5-10.5); Carbon Dioxide 30 mmol/L (22-29); Chloride 101 mmol/L (98-107); Creatinine Clr Calc Pharmacy 94.9824; Globulin 2.7 g/dL (1.3-4.6); Glomerular Filtration Rate 64.1 mL/min (90-130); Glucose 97 mg/dL (65-115); Osmolality Calculated 289 mOsm/kg (285-295); Potassium 3.5 mmol/L (3.5-5.1); Sodium 140 mmol/L (136-145); Total Protein 6.7 g/dL (6.6-8.7)
[2024-09-08 06:07] VITALS: BP 149/81; PULSE 88; O2SAT 97
== END 2024-09-08 06:08 | disposition home or self-care (01) ==
PROVIDERS: Emergency Provider Emergency Medicine; PCP Family Medicine
DX: I11.0 Hypertensive heart disease with heart failure (principal); I50.9 Heart failure, unspecified; R51.9 Headache, unspecified; Z79.82 Long term (current) use of aspirin; I25.10 Atherosclerotic heart disease of native coronary artery without angina pectoris
CPT/HCPCS: 80053; 85025; 93005; 99284

== ENCOUNTER 2024-09-10 05:55 | Emergency (ER) | payer MEDICARE, MEDICAID, SELFPAY ==
[2024-09-10 06:09] VITALS: BP 165/104; PULSE 83; RESP 18; TEMP 37.3; O2SAT 94; BMI 44.6
[2024-09-10 06:11] VITALS: BP 165/104; PULSE 84; O2SAT 96
--- NOTE | 2024-09-10 06:17 | XRR_ITS ---
PROCEDURE INFORMATION: Exam: XR Chest Exam date and time: 09/10/2024 6:43 AM Age: 59 years old Clinical indication: Cough and dyspnea; Prior surgery; Surgery date: 6+ months; Surgery type: Cabg; Additional info: Dyspnea/cough TECHNIQUE: Imaging protocol: Radiologic exam of the chest. Views: 1 view. COMPARISON: CR XR chest 1V portable [id number] 03/31/2024 11:46 AM FINDINGS: Tubes, catheters and devices: Stable focus of suture material projecting over the left hilum. Lungs: No large focal consolidation. Pleural spaces: No large pleural effusion. No distinct pneumothorax. Heart/Mediastinum: Cardiomediastinal silhouette is midline and normal in size. Bones/joints: No distinct acute osseous findings. XR/XR chest 1V portable [id number] IMPRESSION: No acute cardiopulmonary findings.
--- NOTE | 2024-09-10 06:22 | ED_ITS ---
HPI - URI/Sore Throat 2 General: Chief Complaint: Upper Respiratory Infection Stated Complaint: Coughing\Conjested\Dizzy Time Seen by Provider: 09/10/24 06:06 History of Present Illness: 59-year-old female presents emergency ro om complaining of cough congestion dizziness she says she has a productive cough for last few days. Some myalgias and headache no diarrhea no vomiting no hemoptysis she was seen earlier in the week for elevated blood pressure and given clonidine with one-time dose in the emergency room she denies any chest pain Associated symptoms: Deny abdominal pain, chills, chest pain or fever(s) Related Data Home Medications Medication Instructions Recorded Confirmed alprazolam 1 mg tablet 1 mg PO DAILY PRN Anxiety 12/19/22 09/10/24 pramipexole 0.5 mg tablet See Rx Instructions .Route .COMPLEX 12/19/22 09/10/24 azelastine 137 mcg (0.1 %) nasal 2 spray intranasal BID PRN 07/03/23 09/10/24 spray ALLERGIES fluoxetine 40 mg capsule 40 mg PO DAILY 07/03/23 09/10/24 furosemide 20 mg tablet 20 mg PO DAILY 07/03/23 09/10/24 aspirin 81 mg tablet,delayed 81 mg PO DAILY PRN Chest Pain 07/20/23 09/10/24 release fluticasone 500 mcg-salmeterol 50 1 inh inhalation BID 07/20/23 09/10/24 mcg/dose blistr powdr for inhalation (Wixela Inhub) levothyroxine 150 mcg tablet 150 mcg PO QAM 03/31/24 09/10/24 losartan 100 mg tablet 50 mg PO BID 05/06/24 09/10/24 acetaminophen 300 mg-codeine 30 mg 1 tab PO Q6H PRN Pain 09/10/24 09/10/24 tablet carvedilol 25 mg tablet 25 mg PO BID 09/10/24 09/10/24 cholecalciferol (vitamin D3) 250 10,000 unit PO Q7D 09/10/24 09/10/24 mcg (10,000 unit) capsule cyanocobalamin (vitamin B-12) 1,000 mcg IM Q7D 09/10/24 09/10/24 1,000 mcg/mL injection solution gabapentin 300 mg capsule 300 mg PO TID PRN nerve pain 09/10/24 09/10/24 Previous Rx's Medication Instructions Recorded albuterol sulfate 90 mcg/actuation 2 puff inhalation BID PRN 03/04/24 aerosol inhaler Shortness Of Breath Or Wheezing #6.7 grams fluticasone propionate 50 2 spray intranasal DAILY #16 grams 03/04/24 mcg/actuation nasal spray,suspension (Flonase Allergy Relief) albuterol sulfate 90 mcg/actuation 2 inh inhalation Q4H PRN shortness 09/10/24 aerosol inhaler of breath or wheezing #18 grams azelastine 137 mcg (0.1 %) nasal 2 spray intranasal BID #30 mL 09/10/24 spray promethazine-DM 6.25 mg-15 mg/5 mL 5 ml PO Q4H PRN cough #473 mL 09/10/24 oral syrup Allergies Allergy/AdvReac Type Severity Reaction Status Date / Time ceftriaxone [From Rocephin] Allergy ALGY-Rash Verified 09/10/24 06:12 metoclopramide [From Reglan] Allergy Unknown Verified 09/10/24 06:12 prochlorperazine Allergy Unknown Verified 09/10/24 06:12 [From Compazine] Review of Systems 2 Const: Denies: fever(s) or chills Card: Denies: chest pain Resp: Reports: productive cough, wheezing and chest congestion; Denies: dyspnea GI: Denies: abdominal pain : Denies: dysuria, urinary frequency or urinary urgency Musc: Denies: neck pain or back pain Skin/Breast: Denies: rash PFSH ED 2 PFSH: Medical History Coronary artery disease Hypertension Congestive heart failure Family History Mother Diabetes Stroke Brother Diabetes Heart disease Social History Smoking and tobacco/nicotine status: never used tobacco/nicotine Second hand smoke exposure: No Alcohol intake: never Substance/Drug Use: never Physical Exam 2 Const: COMMON NORMALS: no acute distress GENERAL APPEARANCE: cooperative and comfortable ORIENTATION/CONSCIOUSNESS: Yes awake, Yes oriented to person, Yes oriented to place and Yes oriented to time HENMT: COMMON NORMALS: normocephalic, atraumatic and hearing grossly normal bilaterally HEAD & SCALP: normocephalic and atraumatic Resp: COMMON NORMALS: normal respiratory effort, No retractions, No use of accessory muscles and clear to auscultation bilaterally AUSCULTATION: clear to auscultation bilaterally Cardio: COMMON NORMALS: regular rate, regular rhythm and No murmurs present (Cardio) RATE: regular rate RHYTHM: regular rhythm GI: COMMON NORMALS: Soft to palpation and No hepatosplenomegaly present A USCULTATION: Yes normoactive bowel sounds PALPATION: Yes Soft to palpation, No Tenderness to palpation present (GI), No Guarding due to palpation present (GI) and Yes No hepatosplenomegaly present Extremity: COMMON NORMALS: normal to inspection, capillary refill normal, no clubbing, cyanosis or edema, no calf tenderness and no pedal edema Neuro: SENSORIUM/ORIENTATION: Yes oriented to person, Yes oriented to place and Yes oriented to time Skin: COMMON NORMALS: no rashes or lesions noted GENERAL SKIN EXAM: no rashes or lesions noted Course 2 Vital Signs: Vital signs: Vital Signs Temperature 99.2 F 09/10/24 06:09 Pulse Rate 68 09/10/24 10:41 Respiratory Rate 18 09/10/24 06:09 Blood Pressure 176/78 09/10/24 10:41 Pulse Oximetry 95 09/10/24 10:41 Oxygen Delivery Me thod Room Air 09/10/24 06:45 MDM - URI/Sore Throat Medical Decision Making Positive for influenza A no other signs of secondary flexion chest x-ray does not show pneumonia. Will discharge home we discussed Tamiflu efficacy and how work she declined she prefer not to take it at this point she also is complaining sinus congestion use Astelin nasal spray for this. She had listed Reglan and Compazine as allergies but she has taken Phenergan before without difficulty gave her Phenergan DM cough medications. Will have her follow-up with her primary care doctor. Medical Records I reviewed the patient's medical records. Lab Data I reviewed the patient's lab results. 09/10/24 06:49 09/10/24 06:49 Radiology Impressions Chest X-Ray 09/10/24 06:17 IMPRESSION: No acute cardiopulmonary findings. Laboratory Results WBC 3.15 10^3/uL (3.29-11.43) L 09/10/24 06:49 RBC 3.64 10^6/uL (3.85-5.65) L 09/10/24 06:49 Hgb 11.70 g/dL (11.27-16.99) 09/10/24 06:49 Hct 35.1 % (36-47) L 09/10/24 06:49 MCV 96.4 fl (85-98) 09/10/24 06:49 MCH 32.1 pg (27-33) 09/10/24 06:49 MCHC 33.3 g/dL (30-55) 09/10/24 06:49 RDW 14.5 % (12.1-15.1) 09/10/24 06:49 Plt Count 129 10^3/cmm (157-399) L 09/10/24 06:49 MPV 10.0 fL (7.4-10.4) 09/10/24 06:49 Neut % (Auto) 67.1 % 09/10/24 06:49 Lymph % (Auto) 17.1 % 09/10/24 06:49 [place] % (Auto) 13.0 % 09/10/24 06:49 Eos % (Auto) 2.5 % 09/10/24 06:49 Baso % (Auto) 0.0 % 09/10/24 06:49 Neut # (Auto) 2.11 10^3/uL (1.8-7.7) 09/10/24 06:49 Lymph # (Auto) 0.5 10^3/uL (0.8-4.8) L 09/10/24 06:49 [place] # (Auto) 0.4 10^3/uL (0.2-0.9) 09/10/24 06:49 Eos # (Auto) 0.1 10^3/uL (0.0-0.8) 09/10/24 06:49 Baso # (Auto) 0.0 10^3/uL (0.0-0.1) 09/10/24 06:49 Nucleated RBC % (auto) 0 % 09/10/24 06:49 Nucleated RBCs # 0.0 /100WBC 09/10/24 06:49 Sodium 138 mmol/L (136-145) 09/10/24 06:49 Potassium 3.5 mmol/L (3.5-5.1) 09/10/24 06:49 Chloride 99 mmol/L (98-107) 09/10/24 06:49 Carbon Dioxide 28 mmol/L (22-29) 09/10/24 06:49 Anion Gap 14.5 (5-19) 09/10/24 06:49 BUN 11 mg/dL (6-20) 09/10/24 06:49 Creatinine 1.0 mg/dL (0.5-0.9) H 09/10/24 06:49 GFR Calculation 56.7 mL/min (90-130) L 09/10/24 06:49 Glucose 99 mg/dL (65-115) 09/10/24 06:49 Calculated Osmolality 285 mOsm/kg (285-295) 09/10/24 06:49 Calcium 8.3 mg/dL (8.5-10.5) L 09/10/24 06:49 Total Bilirubin 0.8 mg/dL (0.15-1.2) 09/10/24 06:49 AST 21 U/L (0-32) 09/10/24 06:49 ALT 14 U/L (0-33) 09/10/24 06:49 Alkaline Phosphatase 92 U/L (35-105) 09/10/24 06:49 Total Protein 6.3 g/dL (6.6-8.7) L 09/10/24 06:49 Albumin 3.7 g/dL (3.5-5.2) 09/10/24 06:49 Globulin 2.6 g/dL (1.3-4.6) 09/10/24 06:49 Coronavirus (PCR) Negative (Negative) 09/10/24 06:57 Influenza A (PCR) Positive (Negative) 09/10/24 06:57 Influenza Type B (PCR) Negative (Negative) 09/10/24 06:57 RSV (PCR) Negative (Negative) 09/10/24 06:57 All radiology interpretation(s) finalized by discharge Discharge Plan Discharge Patient Disposition: Home Clinical Impression: Influenza Condition: Stable Prescriptions: New azelastine 137 mcg (0.1 %) spray,non-aerosol 2 spray intranasal BID Qty: 30 0RF Rx Instructions: administer into each nostril albuterol sulfate 90 mcg/actuation HFA aerosol inhaler 2 inh INHALATION Q4H PRN (Reason: shortness of breath or wheezing) Qty: 18 0RF promethazine-DM 6.25-15 mg/5 mL syrup 5 ml PO Q4H PRN (Reason: cough) Qty: 473 0RF No Action fluticasone propionate [Flonase Allergy Relief] 50 mcg/actuation spray,suspension 2 spray intranasal DAILY Qty: 16 0RF Rx Instructions: administer into each nostril albuterol sulfate 90 mcg/actuation HFA aerosol inhaler 2 puff INHALATION BID PRN (Reason: Shortness Of Breath Or Wheezing) Qty: 6.7 0RF fluoxetine 40 mg capsule 40 mg PO DAILY azelastine 137 mcg (0.1 %) aerosol,spray 2 spray intranasal BID PRN (Reason: ALLERGIES) Rx Instructions: administer into each nostril furosemide 20 mg tablet 20 mg PO DAILY losartan 100 mg tablet 50 mg PO BID aspirin [Aspir-81] 81 mg Tablet,Delayed Release (Dr/Ec) 81 mg PO DAILY PRN (Reason: Chest Pain) fluticasone propion-salmeterol [Wixela Inhub] 500-50 mcg/dose Blister With Device 1 inh INHALATION BID levothyroxine 150 mcg tablet 150 mcg PO QAM acetaminophen-codeine 300-30 mg tablet 1 tab PO Q6H PRN (Reason: Pain) cyanocobalamin (vitamin B-12) 1,000 mcg/mL solution 1,000 mcg IM Q7D gabapentin 300 mg capsule 300 mg PO TID PRN (Reason: nerve pain) cholecalciferol (vitamin D3) 250 mcg (10,000 unit) capsule 10,000 unit PO Q7D carvedilol 25 mg tablet 25 mg PO BID alprazolam 1 mg tablet 1 mg PO DAILY PRN (Reason: Anxiety) pramipexole 0.5 mg tablet See Rx Instructions .ROUTE .COMPLEX Rx Instructions: TAKE 1 TABLET IN THE MORNING AND 2 TABLETS AT BEDTIME. Discharge Orders: Discharge ED (Routine); Ordered 09/10/24 Ordered By: Ye Ochoa Referrals: Ilene Velásquez DO [Primary Care Provider] - Discharge Diet: Usual diet Discharge Activity: Resume usual activity Patient Instructions: Influenza (ED), Opioid Safety, Pain Management Activity Restrictions/Additional Instructions: Thank you for choosing [facility] for your healthcare needs today. It is very important that you follow up as instructed or that you return to the Emergency Department should you have concerns or if your condition changes or worsens in any way. You are seen this morning for upper respiratory symptoms. You tested positive for influenza your chest x-ray did not show any secondary pneumonias. We discussed using Tamiflu and you have declined after reviewing health medication works. Continue to use your albuterol every 4 hours as needed we also gave her promethazine with dextromethorphan as a cough medicine you can use azelastine 2 sprays in each nostril twice a day for nasal congestion. Follow-up with your primary care doctor if you have any worsening of symptoms Coding Level of Care Code ED Admitting Supervisor for Yvon Patterson
[2024-09-10 06:30] VITALS: PULSE 80; O2SAT 98
[2024-09-10 06:45] VITALS: PULSE 89; O2SAT 98
[2024-09-10 07:07] LABS: Eosinophils # 0.1 10^3/uL (0.0-0.8); Eosinophils % 2.5 %; Hematocrit 35.1 % (36-47); Lymphocytes # 0.5 10^3/uL (0.8-4.8); Lymphocytes % 17.1 %; Mean Corpuscular HGB Conc 33.3 g/dL (30-55); Mean Corpuscular Hemoglobin 32.1 pg (27-33); Mean Corpuscular Volume 96.4 fl (85-98); Monocytes # 0.4 10^3/uL (0.2-0.9); Neutrophils # 2.11 10^3/uL (1.8-7.7); Neutrophils % 67.1 %; Nucleated Red Blood Cells % 0 %; Platelet Count 129 10^3/cmm (157-399); Red Blood Count 3.64 10^6/uL (3.85-5.65); Red Cell Distribution Width 14.5 % (12.1-15.1); White Blood Count 3.15 10^3/uL (3.29-11.43)
[2024-09-10 07:21] LABS: Alanine Aminotransferase 14 U/L (0-33); Albumin Level 3.7 g/dL (3.5-5.2); Alkaline Phosphatase 92 U/L (35-105); Anion Gap 14.5 (5-19); Aspartate Amino Transferase 21 U/L (0-32); Blood Urea Nitrogen 11 mg/dL (6-20); Calcium 8.3 mg/dL (8.5-10.5); Carbon Dioxide 28 mmol/L (22-29); Chloride 99 mmol/L (98-107); Creatinine Clr Calc Pharmacy 84.7903; Globulin 2.6 g/dL (1.3-4.6); Glomerular Filtration Rate 56.7 mL/min (90-130); Glucose 99 mg/dL (65-115); Osmolality Calculated 285 mOsm/kg (285-295); Potassium 3.5 mmol/L (3.5-5.1); Sodium 138 mmol/L (136-145); Total Bilirubin 0.8 mg/dL (0.15-1.2); Total Protein 6.3 g/dL (6.6-8.7)
[2024-09-10 07:48] LABS: Covid PCR NEGATIVE (Negative); Influenza A POSITIVE (Negative); Influenza B NEGATIVE (Negative); Respiratory Syncytial Virus Ce NEGATIVE (Negative)
[2024-09-10 09:25] VITALS: BP 158/92; PULSE 90; O2SAT 97
[2024-09-10] MEDS: ondansetron 2 mg/ML SDV 2 mL 4 MG IVP (10:37)
[2024-09-10 10:41] VITALS: BP 176/78; PULSE 68; O2SAT 95
== END 2024-09-10 10:42 | disposition home or self-care (01) ==
PROVIDERS: Emergency Provider Family Medicine; PCP Family Medicine
DX: J10.1 Influenza due to other identified influenza virus with other respiratory manifestations (principal); Z11.52 Encounter for screening for COVID-19; Z79.82 Long term (current) use of aspirin; I25.10 Atherosclerotic heart disease of native coronary artery without angina pectoris; I11.0 Hypertensive heart disease with heart failure; I50.9 Heart failure, unspecified
CPT/HCPCS: 71045; 80053; 85025; 87637; 96374; 99284; J2405

== ENCOUNTER 2024-09-29 14:19 | Outpatient (CLI) | payer MEDICARE, MEDICAID, SELFPAY ==
--- NOTE | 2024-09-29 14:25 | XRR_ITS ---
PROCEDURE INFORMATION: Exam: XR Chest Exam date and time: 09/29/2024 2:38 PM Age: 59 years old Clinical indication: Cough; Prior surgery; Surgery date: 6+ months; Surgery type: Cabg; Additional info: Acute cough, TECHNIQUE: Imaging protocol: Radiologic exam of the chest. Views: 2 views. COMPARISON: CR (CHEST, ) 09/10/2024 6:43 AM FINDINGS: Lungs: No focal consolidation. Pleural spaces: No evidence of pneumothorax. No evidence of pleural effusion. Heart/Mediastinum: Cardiomediastinal silhouette is within normal limits. Postsurgical changes of the mediastinum noted. Bones/joints: No evidence of acute osseous abnormality. XR/XR chest 2V* [id number] IMPRESSION: 1. No acute cardiopulmonary abnormality.
== END 2024-09-29 14:20 | disposition home or self-care (01) ==
LOC: RAD 14:20
PROVIDERS: PCP Family Medicine; Visit Provider Nurse Practitioner Family
DX: R05.1 Acute cough (principal); R06.2 Wheezing; Z98.890 Other specified postprocedural states
CPT/HCPCS: 71046

== ENCOUNTER 2025-01-20 07:38 | Observation (INO) | payer MEDICARE, MEDICAID, SELFPAY ==
[2025-01-20] VITALS (23 sets, daily range): BP systolic 94–188; BP diastolic 59–122; PULSE 52–91; RESP 15–25; TEMP 36.7–36.9; O2SAT 94–98; BMI 45.3
--- NOTE | 2025-01-20 07:53 | ECG_ITS ---
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/store/[id number]
--- NOTE | 2025-01-20 08:20 | W.ED.CHESTPA ---
HPI - Chest Pain General: Chief Complaint: Chest Pain Stated Complaint: CP/SOB Time Seen by Provider: 01/20/25 07:53 History of Present Illness: 59-year-old female presents emergency room complaining of shortness of breath with exertion. Patient has a known history of coronary artery disease reports she has had exertional dyspnea in the last 4 days she is also had some chest pain with that. Pain radiated into her neck and into her shoulder along with shortness of breath with activity. It is relieved by rest. She is has a history of congestive heart failure and hypertension is functional as her blood pressure is elevated she took a tizanidine to try to reduce her blood pressure states that it did not work so she presented from she also taken 20 of Lasix this morning and has been urinating increase the Lasix today.. She has some mild orthopnea which she can overcome by laying on her left side she tells me she denies any fever/chills she has a little recent onset of a cough. Associated symptoms: Deny abdominal pain, dyspnea or fever(s) Related Data Home Medications ?Medication ?Instructions ?Recorded ?Confirmed pramipexole 0.5 mg tablet See Rx Instructions .Route .COMPLEX 12/19/22 01/20/25 furosemide 20 mg tablet 20 mg PO DAILY 07/03/23 01/20/25 aspirin 81 mg tablet,delayed 81 mg PO DAILY PRN Chest Pain 07/20/23 01/20/25 release fluticasone 500 mcg-salmeterol 50 1 inh inhalation BID 07/20/23 01/20/25 mcg/dose blistr powdr for inhalation (Syedela Inhub) levothyroxine 150 mcg tablet 150 mcg PO QAM 03/31/24 01/20/25 losartan 100 mg tablet 50 mg PO BID 05/06/24 01/20/25 carvedilol 25 mg tablet 25 mg PO BID 09/10/24 01/20/25 amlodipine 5 mg tablet 5 mg PO DAILY 01/20/25 01/20/25 fluoxetine 60 mg tablet 60 mg PO DAILY 01/20/25 01/20/25 gabapentin 100 mg capsule 500 mg PO DAILY 01/20/25 01/20/25 Previous Rx's ?Medication ?Instructions ?Recorded fluticasone propionate 50 2 spray intranasal DAILY #16 grams 03/04/24 mcg/actuation nasal spray,suspension (Flonase Allergy Relief) albuterol sulfate 90 mcg/actuation 2 inh inhalation Q4H PRN shortness 09/10/24 aerosol inhaler of breath or wheezing #18 grams hydralazine 25 mg tablet 25 mg PO TID #90 tabs 01/21/25 lorazepam 0.5 mg tablet 0.5 mg PO BID PRN anxiety #6 tabs 01/21/25 Allergies Allergy/AdvReac Type Severity Reaction Status Date / Time ceftriaxone (From Rocephin) Allergy ALGY-Rash Verified 01/20/25 08:01 metoclopramide (From Reglan) Allergy Unknown Verified 01/20/25 08:01 prochlorperazine (From Allergy Unknown Verified 01/20/25 08:01 Compazine) Review of Systems Const: Denies: fever(s) or chills Card: Denies: chest pain Resp: Denies: dyspnea GI: Denies: abdominal pain : Denies: dysuria, urinary frequency or urinary urgency Musc: Denies: neck pain or back pain Skin/Breast: Denies: rash PFSH ED PFSH: Medical History Coronary artery disease Hypertension Congestive heart failure Family History Mother Diabetes Stroke Brother Diabetes Heart disease Social History Smoking and tobacco/nicotine status: never used tobacco/nicotine Second hand smoke exposure: No Alcohol intake: never Substance/Drug Use: never Physical Exam Const: GENERAL APPEARANCE: cooperative ORIENTATION/CONSCIOUSNESS: Yes awake, Yes oriented to person, Yes oriented to place and Yes oriented to time HENMT: COMMON NORMALS: normocephalic, atraumatic and hearing grossly normal bilaterally HEAD & SCALP: normocephalic and atraumatic Resp: COMMON NORMALS: normal respiratory effort, No retractions and No use of accessory muscles AUSCULTATION: crackles Cardio: COMMON NORMALS: regular rate, regular rhythm and No murmurs present (Cardio) RATE: regular rate RHYTHM: regular rhythm GI: COMMON NORMALS: Soft to palpation and No hepatosplenomegaly present AUSCULTATION: Yes normoactive bowel sounds PALPATION: Yes Soft to palpation, No Tenderness to palpation present (GI), No Guarding due to palpation present (GI) and Yes No hepatosplenomegaly present Extremity: COMMON NORMALS: normal to inspection, capillary refill normal, no clubbing, cyanosis or edema, no calf tenderness and no pedal edema Neuro: SENSORIUM/ORIENTATION: Yes oriented to person, Yes oriented to place and Yes oriented to time Skin: COMMON NORMALS: no rashes or lesions noted GENERAL SKIN EXAM: no rashes or lesions noted Course Vital Signs: Vital signs: Vital Signs Temperature 97.9 F 01/21/25 11:54 Pulse Rate 69 01/21/25 12:36 Respiratory Rate 20 H 01/21/25 12:36 Blood Pressure 94/61 01/21/25 12:36 Pulse Oximetry 94 01/21/25 12:36 Oxygen Delivery Me thod Room Air 01/21/25 11:54 MDM - Chest Pain Medical Decision Making Patient presents with acute heart failure with. Blood pressure is markedly elevated. Will admit for blood pressure control and diuresis further cardiac evaluation. Discussed with hospitalist orders written consult cardiology. Labs and imaging reviewed as found in the chart. EKG shows sinus bradycardia with a rate of [address] elevation Medical Records I reviewed the patient's medical records. Lab Data I reviewed the patient's lab results. 01/21/25 02:18 01/21/25 02:18 Radiology Impressions Chest X-Ray 01/20/25 10:02 IMPRESSION: 1. Cardiomegaly. No acute process. Laboratory Results WBC 4.84 10^3/uL (3.29-11.43) 01/20/25 08:35 RBC 3.89 10^6/uL (3.85-5.65) 01/20/25 08:35 Hgb 12.60 g/dL (11.27-16.99) 01/20/25 08:35 Hct 36.8 % (36-47) 01/20/25 08:35 MCV 94.6 fl (85-98) 01/20/25 08:35 MCH 32.4 pg (27-33) 01/20/25 08:35 MCHC 34.2 g/dL (30-55) 01/20/25 08:35 RDW 13.6 % (12.1-15.1) 01/20/25 08:35 Plt Count 165 10^3/cmm (157-399) 01/20/25 08:35 MPV 10.0 fL (7.4-10.4) 01/20/25 08:35 Neut % (Auto) 66.2 % 01/20/25 08:35 Lymph % (Auto) 22.3 % 01/20/25 08:35 [place] % (Auto) 6.2 % 01/20/25 08:35 Eos % (Auto) 4.3 % 01/20/25 08:35 Baso % (Auto) 0.6 % 01/20/25 08:35 Neut # (Auto) 3.20 10^3/uL (1.8-7.7) 01/20/25 08:35 Lymph # (Auto) 1.1 10^3/uL (0.8-4.8) 01/20/25 08:35 [place] # (Auto) 0.3 10^3/uL (0.2-0.9) 01/20/25 08:35 Eos # (Auto) 0.2 10^3/uL (0.0-0.8) 01/20/25 08:35 Baso # (Auto) 0.0 10^3/uL (0.0-0.1) 01/20/25 08:35 Nucleated RBC % (auto) 0 % 01/20/25 08:35 Nucleated RBCs # 0.0 /100WBC 01/20/25 08:35 Sodium 141 mmol/L (136-145) 01/20/25 08:35 Potassium 4.0 mmol/L (3.5-5.1) 01/20/25 08:35 Chloride 102 mmol/L (98-107) 01/20/25 08:35 Carbon Dioxide 29 mmol/L (22-29) 01/20/25 08:35 Anion Gap 14.0 (5-19) 01/20/25 08:35 BUN 12 mg/dL (6-20) 01/20/25 08:35 Creatinine 0.9 mg/dL (0.5-0.9) 01/20/25 08:35 GFR Calculation 64.1 mL/min (90-130) L 01/20/25 08:35 Glucose 98 mg/dL (65-115) 01/20/25 08:35 Estimat Average Glucose 82 01/20/25 08:35 Hemoglobin A1c 4.5 % (4.0-6.0) 01/20/25 08:35 Calculated Osmolality 292 mOsm/kg (285-295) 01/20/25 08:35 Calcium 9.0 mg/dL (8.5-10.5) 01/20/25 08:35 Total Bilirubin 0.9 mg/dL (0.15-1.2) 01/20/25 08:35 AST 16 U/L (0-32) 01/20/25 08:35 ALT 13 U/L (0-33) 01/20/25 08:35 Alkaline Phosphatase 103 U/L (35-105) 01/20/25 08:35 Troponin T Baseline 8 ng/L (0-10) 01/20/25 08:35 Troponin T 120 Minute 8.23 ng/L (0-10) 01/20/25 10:29 Delta Troponin T 0.23 ABS# (0-10) 01/20/25 10:29 NT-Pro-B Natriuret Pep 1341 pg/mL (0-125) H 01/20/25 08:35 Total Protein 6.8 g/dL (6.6-8.7) 01/20/25 08:35 Albumin 4.1 g/dL (3.5-5.2) 01/20/25 08:35 Globulin 2.7 g/dL (1.3-4.6) 01/20/25 08:35 Triglycerides 138 mg/dL (0-150) 01/20/25 08:35 Cholesterol 225 mg/dL (0-200) H 01/20/25 08:35 LDL Cholesterol, Calc 128 mg/dL (50-129) 01/20/25 08:35 HDL Cholesterol 69 mg/dL (60-100) 01/20/25 08:35 LDL/HDL Ratio 1.86 RATIO (0.00-3.22) 01/20/25 08:35 Cholesterol/HDL Ratio 3.26 mg/dL (0.0-4.40) 01/20/25 08:35 TSH 4.99 uIU/mL (0.27-4.20) H 01/20/25 08:35 All radiology interpretation(s) finalized by discharge Discharge Plan Discharge Patient Disposition: Admitted As Inpatient Admit Provider: Suzanne,[place] Clinical Impression: Congestive heart failure, Hypertension, Coronary artery disease, Chest pain, 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
[2025-01-20 08:46] LABS: Basophils % 0.6 %; Eosinophils # 0.2 10^3/uL (0.0-0.8); Eosinophils % 4.3 %; Hematocrit 36.8 % (36-47); Lymphocytes # 1.1 10^3/uL (0.8-4.8); Lymphocytes % 22.3 %; Mean Corpuscular HGB Conc 34.2 g/dL (30-55); Mean Corpuscular Hemoglobin 32.4 pg (27-33); Mean Corpuscular Volume 94.6 fl (85-98); Monocytes # 0.3 10^3/uL (0.2-0.9); Monocytes % 6.2 %; Neutrophils % 66.2 %; Nucleated Red Blood Cells % 0 %; Platelet Count 165 10^3/cmm (157-399); Red Blood Count 3.89 10^6/uL (3.85-5.65); Red Cell Distribution Width 13.6 % (12.1-15.1); White Blood Count 4.84 10^3/uL (3.29-11.43)
[2025-01-20 09:07] LABS: Troponin(5th) Baseline 8 ng/L (0-10)
[2025-01-20 09:17] LABS: Alanine Aminotransferase 13 U/L (0-33); Albumin Level 4.1 g/dL (3.5-5.2); Alkaline Phosphatase 103 U/L (35-105); Aspartate Amino Transferase 16 U/L (0-32); Blood Urea Nitrogen 12 mg/dL (6-20); Carbon Dioxide 29 mmol/L (22-29); Chloride 102 mmol/L (98-107); Creatinine Clr Calc Pharmacy 98.1839; Globulin 2.7 g/dL (1.3-4.6); Glomerular Filtration Rate 64.1 mL/min (90-130); Glucose 98 mg/dL (65-115); NT Pro B Type Natriuretic Pept 1341 pg/mL (0-125); Osmolality Calculated 292 mOsm/kg (285-295); Sodium 141 mmol/L (136-145); Total Bilirubin 0.9 mg/dL (0.15-1.2); Total Protein 6.8 g/dL (6.6-8.7)
--- NOTE | 2025-01-20 09:44 | ECG_ITS ---
[employer] Test Date: 2025-01-20 Pat Name: Mylene Moran Department: Room: Gender: Female Deportation Officer: : 1965 Requested By: Ye Lewis Order Number: [id number] Richy MD: JOSUÉ OLIVERA Measurements Intervals [place] Rate: 53 P: 23 LA: 177 QRS: 13 QRSD: 95 T: 42 QT: 442 QTc: 416 Interpretive Statements SINUS BRADYCARDIA MINIMAL VOLTAGE CRITERIA FOR LVH, CONSIDER NORMAL VARIANT [MEETS CRITERIA IN ONE OF: R(aVL), S(V1), R(V5), R(V5/V6)+S(V1)] Compared to ECG 01/20/2025 07:53:18 No significant changes Electronically Signed On 01-22-2025 23:47:13 CDT by JOSUÉ OLIVERA [id number] [id number]
--- NOTE | 2025-01-20 10:02 | XR_ITS ---
WS: [id number] Exam: XR chest 1V portable [id number] Date/Time of Exam: 01/20/2025 10:05 AM Reason For Exam: dyspnea/cough Comparison 09/29/2024. The lungs are clear and fully expanded. The heart is enlarged. No pleural effusion. The mediastinum is normal in contour. Signs of previous cardiac surgery. Bony structures are intact. XR/XR chest 1V portable [id number] IMPRESSION: 1. Cardiomegaly. No acute process.
[2025-01-20 11:01] LABS: Troponin 5 2HR 8.23 ng/L (0-10); Troponin 5 2HR Delta 0.23 ABS# (0-10)
[2025-01-20] MEDS: LORazepam 1 MG/0.5 ML injection IVP (13:39)
--- NOTE | 2025-01-20 13:51 | ECG_ITS ---
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
--- NOTE | 2025-01-20 14:16 | ECG_ITS ---
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 Interpretive Statements LEXISCAN SESTAMIBI STRESS TEST Procedure: At the baseline, the blood pressure was 136/84 mmHg with a heart rate of 67 bpm. The electrocardiogram showed normal sinus rhythm, normal axis with normal ST and T's. The Lexiscan was infused over a period of 20 seconds. A total of 0.4 mg of Lexiscan was infused. The stress phase was continued for a total of 5 minutes. Heart rate was at the end of stress phase was 74 bpm and a blood pressure of 159/101 mmHg. The EKG at the peak infusion revealed normal sinus rhythm with no significant ST-T wave changes. Sestamibi was injected 20 seconds after the Lexiscan infusion. Blood pressure at the end of recovery phase was 152/98 mmHg with a heart rate of 74 bpm. Conclusion: 1. Normal EKG response to Lexiscan infusion 2. No Lexiscan induced chest pain or cardiac arrhythmia. 3. Normal blood pressure and heart rate response. 4. Sestamibi/sestamibi perfusion scan pending; see separate report. Electronically Signed On 01-24-2025 11:39:36 CDT by Norman Cole M.D. [id number]
--- NOTE | 2025-01-20 14:17 | P.CONIM_ITS ---
<Statement entered by Norman Cole M.D - 01/23/25 09:01> Patient was evaluated and cared for in conjunction with an advanced practice practitioner.? I personally examined the patient and reviewed the chart and all pertinent data including imaging, telemetry, and laboratory results.? I discussed the patient in detail with the advanced practice practitioner.? Please see? their note for complete consult note, testing results and agreed upon plan of care for the patient. GENERAL: Patient is alert, awake and oriented x3. HEART: Regular S1 and S2 LUNGS: Clear to auscultate bilaterally. CENTRAL NERVOUS SYSTEM: Grossly nonfocal. EXTREMITIES: Lower extremities with 1+ edema bilaterally. Providers/Reason For Consult 2 Consulting Physician/Specialty*: Dr Cole, cardiology Reason for Consult*: chest pain Requesting Physician: Dr Ochoa Attending Physician: China Palacios MD Primary Care Provider: Ilene Velásquez DO History of Present Illness History of Present Illness Mylene Moran is a 59 year old female with past medical history of hypertension, JARET on CPAP, nonobstructive CAD. She presented to the emergency room today with 4-day history of uncontrolled hypertension, chest pain, volume overload (weight gain of 6 pounds over the last 4 days). She took a dose of 40 mg Lasix earlier this morning and has been urinating more frequently over the course the day (usually on 20 mg daily as needed). BNP 1341 this morning, with normal renal function. Most recent coronary angiogram in 2020 at an outside facility, no significant stenosis at that time. She notes an increased amount of stress at home and history of anxiety, she was previously on Xanax for anxiety but since moving to [place] has not been on it for the last 6 months or so. Blood pressures here and at home for the last 4 days have been in the 200/100 range. She has been taking her other medications faithfully, aspirin, losartan 100 mg daily, carvedilol 25 mg twice daily, amlodipine 5 mg daily. Troponin series: 8-> 8. EKG shows sinus bradycardia in the upper 50s, no ischemic ST or T wave changes. Review of Systems 2 Const: Reports: change in weight (increased 6# in 4 days); Denies: fever(s), chills, fatigue or diaphoresis Eyes: Denies: change in vision ENMT: Denies: epistaxis Card: Reports: chest pain, edema, dyspnea on exertion and orthopnea (better this afternoon); Denies: palpitations, irregular heart rhythm, syncope, pre-syncope or leg pain with exertion Resp: Denies: dyspnea, productive cough or wheezing GI: Denies: nausea, vomiting, hematemesis, hematochezia or melena : Denies: hematuria [place]/Lymph: Denies: easy bruising or easy bleeding Medications/Allergies Home Medications ?Medication ?Instructions ?Recorded ?Confirmed ?Last Taken ?Type pramipexole 0.5 mg tablet See Rx Instructions .Route . COMPLEX 12/19/22 01/20/25 01/20/25 History furosemide 20 mg tablet 20 mg PO DAILY 07/03/2301/0801/20/25 History aspirin 81 mg tablet,delayed 81 mg PO DAILY PRN Chest Pain 07/20/23 01/20/25 01/20/25 History release fluticasone 500 mcg-salmeterol 50 1 inh inhalation BID 07/20/23 01/20/25 01/20/25 History mcg/dose blistr powdr for inhalation (Wixela Inhub) fluticasone propionate 50 2 spray intranasal DAILY #16 grams 03/04/24 01/20/25 09/09/24 Rx mcg/actuation nasal spray,suspension (Flonase Allergy Relief) levothyroxine 150 mcg tablet 150 mcg PO QAM 03/31/24 0 01/20/25 01/20/25 History losartan 100 mg tablet 50 mg PO BID 05/06/2401/20/25 History albuterol sulfate 90 mcg/actuation 2 inh inhalation Q4 H PRN shortness 09/10/24 01/20/25 01/20/25 Rx aerosol inhaler of breath or wheezing #18 gr ams carvedilol 25 mg tablet 25 mg PO BID 09/10/2401/20/25 History amlodipine 5 mg tablet 5 mg PO DAILY 01/20/2501/2001/20/25 History fluoxetine 60 mg tablet 60 mg PO DAILY 01/20/2501/0801/20/25 History gabapentin 100 mg capsule 500 mg PO DAILY 01/20/2501/19/25 History Allergies Allergy/AdvReac Type Severity Reaction Status Date / Time ceftriaxone (From Rocephin) Allergy ALGY-Rash Verified 01/20/25 08:01 metoclopramide (From Reglan) Allergy Unknown Verified 01/20/25 08:01 prochlorperazine (From Allergy Unknown Verified 01/20/25 08:01 Compazine) PFSH Acute 2 PFSH: Medical History Coronary artery disease Hypertension Congestive heart failure Family History Mother Diabetes Stroke Brother Diabetes Heart disease Social History Smoking and tobacco/nicotine status: never used tobacco/nicotine Second hand smoke exposure: No Alcohol intake: never Substance/Drug Use: never Vitals/I&O/Wt Last Vital Signs Temp 98.3 F 01/20/25 07:51 Pulse 64 01/20/25 07:51 Resp 20 H 01/20/25 07:51 BP 188/89 01/20/25 07:51 Pulse Ox 97 01/20/25 07:51 01/19/25 01/20/25 01/20/25 22:59 06:59 14:59 Intake Total 0 / 0 Balance 0 / 0 Weight last 48 hrs Weight 298 lb Physical Exam 2 Const: COMMON NORMALS: no acute distress and patient oriented x3 GENERAL APPEARANCE: cooperative and comfortable ORIENTATION/CONSCIOUSNESS: Yes awake, Yes oriented to person, Yes oriented to place and Yes oriented to time Chest: COMMONS NORMALS: normal inspection of the chest and normal palpation of entire chest wall CHEST: Yes Symmetrical chest wall rise Resp: COMMON NORMALS: normal respiratory effort, No retractions, No use of accessory muscles and clear to auscultation bilaterally EFFORT & INSPECTION: Yes symmetric chest movement AUSCULTATION: clear to auscultation bilaterally Cardio: COMMON NORMALS: regular rate, regular rhythm, S1 normal heart sound present, S2 normal heart sound present, No gallops present (Cardio), No clicks present (Cardio), No murmurs present (Cardio) and No rub (Cardio) RATE: r egular rate RHYTHM: regular rhythm HEART SOUNDS: S1 normal heart sound present and S2 normal heart sound present PERIPHERAL PULSES: radial pulses present Extremity: GENERAL: Yes edema (Trace to 1+ pitting edema bilateral ankles) Neuro: COMMON NORMALS: patient oriented x3 and moves all extremities S ENSORIUM/ORIENTATION: Yes oriented to person, Yes oriented to place and Yes oriented to time Data 01/20/25 08:35 01/20/25 08:35 A&P Assessment and plan (1) Coronary artery disease: (2) Hypertension: (3) Congestive heart failure: Plan Will plan on Lexiscan stress test when she is euvolemic and blood pressure is controlled. Would suggest hydralazine since she is already on losartan, carvedilol and amlodipine. Lasix 40 mg IV daily and assess response. If she does not diurese well overnight, can increase to twice daily dosing in the morning. PDMP PDMP Reviewed: Not Reviewed Coding Level of Care Code Acute Code for [facility] Diagnoses Coronary artery disease involving [place] coronary artery of [place] heart without angina pectoris I25.10 Coronary Disease-Associated Artery/Lesion type: [place] artery [place] vs. transplanted heart: [place] heart Associated angina: without angina Primary hypertension I10 Hypertension type: primary hypertension Congestive heart failure I50.9 Heart failure chronicity: acute on chronic Heart failure type: unspecified
--- NOTE | 2025-01-20 14:19 | USCV_ITS ---
Mylene Moran Age: 59 Gender: F : 1965 Exam Date: 01/20/2025 20:15 Ordering Phys: China Palacios MD Technologist: CELSA Exam Location: [facility] [place] Indication: chest pain, hx HTN, JARET, morbid obesity BP: 161 / 122 HR: 61 Rhythm: Sinus Technical Quality: Adequate MEASUREMENTS (Male / Female) Normal Values 2D ECHO LV Diastolic Diameter PLAX 3.7 cm 4.2 - 5.9 / 3.9 - 5.3 cm IVS Diastolic Thickness 1.7 cm 0.6 - 1.0 / 0.6 - 0.9 cm IVS Systolic Thickness 1.6 cm LVPW Diastolic Thickness 1.7 cm 0.6 - 1.0 / 0.6 - 0.9 cm LVPW Systolic Thickness 1.6 cm LVOT Diameter 2.3 cm LV Ejection Fraction 2D Teich 54.8 % LV Ejection Fraction MOD 4C 52.8 % LV Ejection Fraction MOD 2C 48.6 % LV Ejection Fraction 2C AL 50.4 % LA Diameter 4.4 cm Aorta at Sinotubular Diameter 2.7 cm IVC Diameter 1.3 cm M-MODE LA Ao Ratio MM 1.4 AV Cusp Separation MM 2.0 cm DOPPLER AV Peak Velocity 140.0 cm/s LVOT Peak Velocity 135.0 cm/s AV Area Cont Eq vti 4.7 cm squared AV Area Cont Eq pk 4.1 cm squared MV Peak Velocity 89.0 cm/s MV Area PHT 2.7 cm squared Mitral E to A Ratio 0.8 TV Peak E Velocity 35.0 cm/s PV Peak Velocity 108.0 cm/s FINDINGS Left Ventricle Technically limited quality echocardiogram. Left ventricle is normal in size. LV systolic function is normal with EF of 55- 60%. No regional wall motion abnormalities are seen. Grade 1 diastolic dysfunction Right Ventricle Normal in size and function. Right Atrium Grossly normal Left Atrium Grossly normal Mitral Valve Grossly normal. No significant stenosis. Mild mitral regurgitation Aortic Valve Grossly normal. No significant stenosis or regurgitation. Tricuspid Valve Insufficient TR jet to estimate RVSP. Pulmonic Valve Not well visualized Pericardium Normal Aorta Normal in size IVC Grossly normal CONCLUSIONS Technically limited quality echocardiogram because of poor ultrasonic windows. LV systolic function is normal with EF of 55 to 60%. Grade 1 diastolic dysfunction. Mild mitral regurgitation Norman Cole MD (Electronically Signed) Final Date: 21 Jan 2025 10:00 S
[2025-01-20 14:50] LABS: Estmated Average Glucose 82; Hemoglobin A1C 4.5 % (4.0-6.0)
[2025-01-20 14:58] LABS: Chol HDL Ratio 3.26 mg/dL (0.0-4.40); Cholesterol 225 mg/dL (0-200); HDL Cholesterol 69 mg/dL (60-100); LDL Cholesterol Calculated 128 mg/dL (50-129); LDL HDL Ratio 1.86 RATIO (0.00-3.22); Thyroid Stimulating Hormone 4.99 uIU/mL (0.27-4.20); Triglycerides 138 mg/dL (0-150)
[2025-01-20 15:00] LABS: Troponin 5 6HR 6.69 ng/L (0-10)
--- NOTE | 2025-01-20 15:18 | PC.NURSE ---
Provider ordered ativan 1mg PO TID. Order entered.
[2025-01-20 15:22] LABS: Troponin 5 6HR Delta -1.31 ng/L (0-12)
[2025-01-20] MEDS: FUROsemide 10 mg/mL SDV 4mL 40 MG IVP (15:38)
[2025-01-20] MEDS: heparin 5,000 unit/mL INJ 1 mL 5000 UNIT SUBCUT (15:39)
[2025-01-20] MEDS: LORazepam 1 mg Tablet PO ×2 (15:39→21:01)
--- NOTE | 2025-01-20 16:34 | PM.HP ---
Providers/Chief Complaint Admitting Physician: China Palacios MD Primary Care Provider: Ilene Velásquez DO Chief Complaint: CP/SOB History of Present Illness Mylene Moran is a 59 year old female with past medical history of hypertension, obstructive sleep apnea on CPAP, nonobstructive coronary artery disease with cath done in 2020 which showed normal patent coronaries (this was done at outside facility) presented to the hospital today with complaint of chest pain and weight gain of 6 pounds over the last 4 days. She used to be on 20 of Lasix at home which was an as needed medication for her however today she took 40 of Lasix in the morning. She states she has been urinating a lot more than usual. On arrival to the hospital her BNP was 1341. Blood pressure was high with systolic up to 200. She also states that she has been having a lot of stress lately and in the past has been on Xanax for anxiety when she was in [place]. She is to take up to 2 mg at 1 given time. She states ever since she moved to [place] she has not had access to that medication. She states she has been very stressed out as a lot is going on in her life at this time. She appears anxious at this time as well. He states she has been taking all of her medications as directed. At this time blood pressure 141/112. Troponins 8, 8, 6-hour in high 50s. No acute ST changes. Patient does use CPAP at home. Medications/Allergies Home Medications ?Medication ?Instructions ?Recorded ?Confirmed ?Last Taken ?Type pramipexole 0.5 mg tablet See Rx Instructions .Route .COMPLEX 12/19/22 01/20/25 01/20/25 History furosemide 20 mg tablet 20 mg PO DAILY 07/03/23 01/20/25 01/20/25 History aspirin 81 mg tablet,delayed 81 mg PO DAILY PRN Chest Pain 07/20/23 01/20/25 01/20/25 History release fluticasone 500 mcg-salmeterol 50 1 inh inhalation BID 07/20/23 01/20/25 01/20/25 History mcg/dose blistr powdr for inhalation (Wixela Inhub) fluticasone propionate 50 2 spray intranasal DAILY #16 grams 03/04/24 01/20/25 09/09/24 Rx mcg/actuation nasal spray,suspension (Flonase Allergy Relief) levothyroxine 150 mcg tablet 150 mcg PO QAM 03/31/24 01/20/25 01/20/25 History losartan 100 mg tablet 50 mg PO BID 05/06/24 01/20/25 01/20/25 History albuterol sulfate 90 mcg/actuation 2 inh inhalation Q4H PRN shortness 09/10/24 01/20/25 01/20/25 Rx aerosol inhaler of breath or wheezing #18 grams carvedilol 25 mg tablet 25 mg PO BID 09/10/24 01/20/25 01/20/25 History amlodipine 5 mg tablet 5 mg PO DAILY 01/20/25 01/20/25 01/20/25 History fluoxetine 60 mg tablet 60 mg PO DAILY 01/20/25 01/20/25 01/20/25 History gabapentin 100 mg capsule 500 mg PO DAILY 01/20/25 01/20/25 01/19/25 History Allergies Allergy/AdvReac Type Severity Reaction Status Date / Time ceftriaxone (From Rocephin) Allergy ALGY-Rash Verified 01/20/25 08:01 metoclopramide (From Reglan) Allergy Unknown Verified 01/20/25 08:01 prochlorperazine (From Allergy Unknown Verified 01/20/25 08:01 Compazine) PFSH Acute PFSH: Medical History Coronary artery disease Hypertension Congestive heart failure Family History Mother Diabetes Stroke Brother Diabetes Heart disease Social History Smoking and tobacco/nicotine status: never used tobacco/nicotine Second hand smoke exposure: No Alcohol intake: never Substance/Drug Use: never Vitals/I&O/Wt Last Vital Signs Temp 98.0 F 01/20/25 14:16 Pulse 64 01/20/25 16:00 Resp 25 H 01/20/25 16:00 BP 184/90 01/20/25 16:00 Pulse Ox 95 01/20/25 16:00 O2 Del Method Room Air 01/20/25 16:00 01/20/25 01/20/25 01/20/25 06:59 14:59 22:59 Intake Total 0 / 0 Balance 0 / 0 Weight last 48 hrs Weight 136.078 kg Weight 135.171 kg Physical Exam Narrative: General: Alert oriented x3, patient seen sitting up on edge of the bed appearing very comfortable. No acute distress, says she has been stressed out. Obese female HEENT: Normocephalic, atraumatic, EOMI, breathing room air Cardio: Regular rate rhythm, normal S1-S2, Respiratory: Clear to auscultation bilaterally no wheezes no rhonchi GI: Abdomen soft, nontender, nondistended, bowel sounds + Extremities: Trace edema bilateral lower extremities. Data 01/20/25 08:35 01/20/25 08:35 A&P Assessment and plan (1) Congestive heart failure: (2) Coronary artery disease: (3) JARET (obstructive sleep apnea): (4) Diastolic heart failure: (5) Anxiety: (6) Hypertensive urgency: (7) Hypothyroidism: Plan #Hypertensive urgency #Chest pain most likely secondary to above #History of anxiety/was on Xanax up until 6 months ago #Chronic diastolic heart failure, decompensated #Diabetes mellitus #Obstructive sleep apnea #Hypothyroidism ? Continue CPAP ? Order Xanax 1 mg 3 times daily as needed ? Continue amlodipine 10 mg daily ? Continue carvedilol 25 twice daily ? Continue losartan 50 twice daily ? Add hydralazine 50 3 times daily ? Lasix 40 IV daily to be ordered now. ? Patient is able to lay flat and does not have any respiratory distress from it. ? Check echo to rule out wall motion abnormalities ? Stress test planned for a.m. ? N.p.o. at midnight for stress testing, no caffeine to be given ? Continue on cardiac telemetry ? Continue levothyroxine 150 daily Full code DVT prophylaxis: Heparin SQ twice daily. PDMP PDMP Reviewed: Not Reviewed Attestations Medical Necessity Statement*: stress test in am hypertensive urgency Diagnoses Congestive heart failure I50.9 Heart failure chronicity: acute on chronic Heart failure type: unspecified Coronary artery disease involving [place] coronary artery of [place] heart without angina pectoris I25.10 Coronary Disease-Associated Artery/Lesion type: [place] artery [place] vs. transplanted heart: [place] heart Associated angina: without angina JARET (obstructive sleep apnea) G47.33 Diastolic heart failure I50.30 Anxiety F41.9 Hypertensive urgency I16.0 Hypothyroidism E03.9
[2025-01-20] MEDS: carvedilol 25 mg Tablet PO (17:15)
[2025-01-20] MEDS: losartan 50 mg Tablet PO (17:15)
[2025-01-20] MEDS: hyDRALAzine 25 mg Tablet PO (20:54)
[2025-01-20] MEDS: pramipexole 0.25 mg Tablet 1 MG PO (20:54)
[2025-01-21] VITALS (8 sets, daily range): BP systolic 94–186; BP diastolic 55–98; PULSE 62–89; RESP 13–27; TEMP 36.6–37; O2SAT 90–96
[2025-01-21] MEDS: heparin 5,000 unit/mL INJ 1 mL 5000 UNIT SUBCUT (01:43)
[2025-01-21 02:44] LABS: Basophils % 0.5 %; Eosinophils # 0.2 10^3/uL (0.0-0.8); Hematocrit 36.9 % (36-47); Lymphocytes # 1.4 10^3/uL (0.8-4.8); Lymphocytes % 24.8 %; Mean Corpuscular HGB Conc 33.3 g/dL (30-55); Mean Corpuscular Hemoglobin 31.3 pg (27-33); Mean Corpuscular Volume 93.9 fl (85-98); Mean Platelet Volume 10.3 fL (7.4-10.4); Monocytes # 0.5 10^3/uL (0.2-0.9); Monocytes % 8.1 %; Neutrophils # 3.45 10^3/uL (1.8-7.7); Neutrophils % 62.4 %; Nucleated Red Blood Cells % 0 %; Platelet Count 158 10^3/cmm (157-399); Red Blood Count 3.93 10^6/uL (3.85-5.65); Red Cell Distribution Width 13.5 % (12.1-15.1); White Blood Count 5.53 10^3/uL (3.29-11.43)
[2025-01-21 03:04] LABS: Alanine Aminotransferase 13 U/L (0-33); Albumin Level 3.8 g/dL (3.5-5.2); Alkaline Phosphatase 88 U/L (35-105); Aspartate Amino Transferase 17 U/L (0-32); Blood Urea Nitrogen 15 mg/dL (6-20); Calcium 8.7 mg/dL (8.5-10.5); Carbon Dioxide 28 mmol/L (22-29); Chloride 98 mmol/L (98-107); Creatinine Clr Calc Pharmacy 98.5694; Globulin 2.8 g/dL (1.3-4.6); Glomerular Filtration Rate 64.1 mL/min (90-130); Glucose 91 mg/dL (65-115); Magnesium 1.8 mg/dL (1.7-2.3); Osmolality Calculated 288 mOsm/kg (285-295); Sodium 139 mmol/L (136-145); Total Bilirubin 0.9 mg/dL (0.15-1.2); Total Protein 6.6 g/dL (6.6-8.7)
[2025-01-21 03:08] LABS: Anion Gap 16.5 (5-19); Potassium 3.5 mmol/L (3.5-5.1)
[2025-01-21] MEDS: levothyroxine 150 mcg Tablet PO (05:59)
--- NOTE | 2025-01-21 07:02 | PC.NURSE ---
Patient at stress test at shift change.
[2025-01-21] MEDS: regadenoson 0.4 Mg/5 ml Syringe IVP (07:12)
--- NOTE | 2025-01-21 08:41 | PC.NURSE ---
Patient has returned to CSU from stress test 0835.
[2025-01-21] MEDS: hyDRALAzine 25 mg Tablet PO (08:45)
[2025-01-21] MEDS: amlodipine 5 mg Tablet 10 MG PO (08:46)
[2025-01-21] MEDS: carvedilol 25 mg Tablet PO (08:46)
[2025-01-21] MEDS: losartan 50 mg Tablet PO (08:46)
[2025-01-21] MEDS: pramipexole 0.25 mg Tablet 0.5 MG PO (08:46)
[2025-01-21] MEDS: fluoxetine 20 mg Capsule 60 MG PO (08:47)
--- NOTE | 2025-01-21 10:06 | P.PN_ITS ---
<Statement entered by Norman Cole M.D - 01/23/25 09:02> Patient was evaluated and cared for in conjunction with an advanced practice practitioner.? I personally examined the patient and reviewed the chart and all pertinent data including imaging, telemetry, and laboratory results.? I discussed the patient in detail with the advanced practice practitioner.? Please see? their note for complete progress note, testing results and agreed upon plan of care for the patient. GENERAL: Patient is alert, awake and oriented x3. HEART: Regular S1 and S2 LUNGS: Clear to auscultate bilaterally. CENTRAL NERVOUS SYSTEM: Grossly nonfocal. EXTREMITIES: Lower extremities with 1 + edema bilaterally. Subjective 2 Subjective: Stress test performed this morning shows a medium sized fixed defect that improves on prone imaging likely attenuation artifact. No ischemia noted. Echocardiogram shows LVEF 55 to 60%, grade 1 diastolic dysfunction, mild mitral regurgitation. Will plan to discharge later today once blood pressure improves. Recommend to continue losartan 100 mg daily, carvedilol 25 mg twice a day, amlodipine 5 mg daily, hydralazine 25 mg 3 times a day. May discontinue hydralazine at home if blood pressure is soft. Vitals/I&O/Wt Last Vital Signs Temp 97.8 F 01/21/25 08:00 Pulse 78 01/21/25 08:00 Resp 23 H 01/21/25 08:00 BP 186/81 01/21/25 08:46 Pulse Ox 96 01/21/25 08:00 O2 Del Method Room Air 01/21/25 04:00 01/20/25 01/21/25 01/21/25 22:59 06:59 14:59 Intake Total 570 / 770 200 / 770 480 / 480 Output Total 800 / 1200 400 / 1200 Balance -230 / -430 -200 / -430 480 / 480 Weight last 48 hrs Weight 300 lb Weight 300 lb Weight 298 lb Physical Exam 2 Const: COMMON NORMALS: no acute distress and patient oriented x3 GENERAL APPEARANCE: cooperative and comfortable ORIENTATION/CONSCIOUSNESS: Yes awake, Yes oriented to person, Yes oriented to place and Yes oriented to time Chest: COMMONS NORMALS: normal inspection of the chest and normal palpation of entire chest wall CHEST: Yes Symmetrical chest wall rise Resp: COMMON NORMALS: normal respiratory effort, No retractions, No use of accessory muscles and clear to auscultation bilaterally EFFORT & INSPECTION: Yes symmetric chest movement AUSCULTATION: clear to auscultation bilaterally Cardio: COMMON NORMALS: regular rate, regular rhythm, S1 normal heart sound present, S2 normal heart sound present, No gallops present (Cardio), No clicks present (Cardio), No murmurs present (Cardio) and No rub (Cardio) RATE: r egular rate RHYTHM: regular rhythm HEART SOUNDS: S1 normal heart sound present and S2 normal heart sound present PERIPHERAL PULSES: radial pulses present Extremity: COMMON NORMALS: no pedal edema Neuro: COMMON NORMALS: patient oriented x3 and moves all extremities S ENSORIUM/ORIENTATION: Yes oriented to person, Yes oriented to place and Yes oriented to time Data 01/21/25 02:18 01/21/25 02:18 A&P Assessment and plan (1) Coronary artery disease: (2) Hypertension: (3) Diastolic heart failure: Plan Will ensure good blood pressure control with her current medications before discharge home later today. Follow-up in the clinic in 2 weeks with blood pressure log. PDMP PDMP Reviewed: Not Reviewed Attestations 2 Medical Necessity Statement*: Possible discharge Coding Level of Care Code Acute Code for [facility] Diagnoses Coronary artery disease involving [place] coronary artery of [place] heart without angina pectoris I25.10 Coronary Disease-Associated Artery/Lesion type: [place] artery [place] vs. transplanted heart: [place] heart Associated angina: without angina Primary hypertension I10 Hypertension type: primary hypertension Diastolic heart failure I50.30
[2025-01-21] MEDS: acetaminophen 325 mg Tablet 650 MG PO (11:21)
--- NOTE | 2025-01-21 11:58 | P.DS_ITS ---
Discharge Providers Date of Admission: 01/20/25 14:05 Date of Discharge: January 21, 2025 Attending Provider at Admission: China Palacios MD Attending Provider at Discharge: China Palacios MD Primary Care Provider: Ilene Velásquez DO Diagnoses at Discharge Discharge Diagnosis (1) Coronary artery disease: Status: Acute Qualifiers: Associated angina: without angina Coronary Disease-Associated Artery/Lesion type: [place] artery [place] vs. transplanted heart: [place] heart Qualified Code(s): I25.10 - Atherosclerotic heart disease of [place] coronary artery without angina pectoris (2) Hypertension: Status: Acute Qualifiers: Hypertension type: primary hypertension Qualified Code(s): I10 - Essential (primary) hypertension (3) Diastolic heart failure: Status: Acute Reason for Visit Reason for Visit: CP/SOB Hospital Course Hospital Course Patient admitted to the hospital with hypertensive urgency with chest pain. Also had acute on chronic decompensated diastolic heart failure. She was diuresed and stress test was ordered for the morning. Blood pressure medications were optimized. Stress test was not suggestive of ischemia. Discussed with cardiology. Cardiology was consulted. Patient to be discharged home in stable condition to follow-up as an outpatient. Physical Exam Narrative: General: Alert oriented x3, patient seen sitting up on edge of the bed appearing very comfortable. No acute distress, says she has been stressed out. Obese female HEENT: Normocephalic, atraumatic, EOMI, breathing room air Cardio: Regular rate rhythm, normal S1-S2, Respiratory: Clear to auscultation bilaterally no wheezes no rhonchi GI: Abdomen soft, nontender, nondistended, bowel sounds + Extremities: Trace edema bilateral lower extremities. Discharge Data Studies Completed and Pending Completed Studies During Hospitalization Category Date Time Status Sestamibi Stress Test Request Routine Exams 01/20/25 14:16 Draft XR chest 1V portable [id number] Stat Exams 01/20/25 10:02 Completed NM naif perf SPECT r/s* [id number] Routine Nuc Med 01/21/25 14:18 Completed CV. echo complete* [id number] Stat Ultrasound 01/20/25 14:19 Completed Radiology Impressions Chest X-Ray 01/20/25 10:02 IMPRESSION: 1. Cardiomegaly. No acute process. Laboratory Results WBC 5.53 10^3/uL (3.29-11.43) 01/21/25 02:18 RBC 3.93 10^6/uL (3.85-5.65) 01/21/25 02:18 Hgb 12.30 g/dL (11.27-16.99) 01/21/25 02:18 Hct 36.9 % (36-47) 01/21/25 02:18 MCV 93.9 fl (85-98) 01/21/25 02:18 MCH 31.3 pg (27-33) 01/21/25 02:18 MCHC 33.3 g/dL (30-55) 01/21/25 02:18 RDW 13.5 % (12.1-15.1) 01/21/25 02:18 Plt Count 158 10^3/cmm (157-399) 01/21/25 02:18 MPV 10.3 fL (7.4-10.4) 01/21/25 02:18 Neut % (Auto) 62.4 % 01/21/25 02:18 Lymph % (Auto) 24.8 % 01/21/25 02:18 Cass % (Auto) 8.1 % 01/21/25 02:18 Eos % (Auto) 4.0 % 01/21/25 02:18 Baso % (Auto) 0.5 % 01/21/25 02:18 Neut # (Auto) 3.45 10^3/uL (1.8-7.7) 01/21/25 02:18 Lymph # (Auto) 1.4 10^3/uL (0.8-4.8) 01/21/25 02:18 Cass # (Auto) 0.5 10^3/uL (0.2-0.9) 01/21/25 02:18 Eos # (Auto) 0.2 10^3/uL (0.0-0.8) 01/21/25 02:18 Baso # (Auto) 0.0 10^3/uL (0.0-0.1) 01/21/25 02:18 Nucleated RBC % (auto) 0 % 01/21/25 02:18 Nucleated RBCs # 0.0 /100WBC 01/21/25 02:18 Sodium 139 mmol/L (136-145) 01/21/25 02:18 Potassium 3.5 mmol/L (3.5-5.1) 01/21/25 02:18 Chloride 98 mmol/L (98-107) 01/21/25 02:18 Carbon Dioxide 28 mmol/L (22-29) 01/21/25 02:18 Anion Gap 16.5 (5-19) 01/21/25 02:18 BUN 15 mg/dL (6-20) 01/21/25 02:18 Creatinine 0.9 mg/dL (0.5-0.9) 01/21/25 02:18 GFR Calculation 64.1 mL/min (90-130) L 01/21/25 02:18 Glucose 91 mg/dL (65-115) 01/21/25 02:18 Estimat Average Glucose 82 01/20/25 08:35 Hemoglobin A1c 4.5 % (4.0-6.0) 01/20/25 08:35 Calculated Osmolality 288 mOsm/kg (285-295) 01/21/25 02:18 Calcium 8.7 mg/dL (8.5-10.5) 01/21/25 02:18 Magnesium 1.8 mg/dL (1.7-2.3) 01/21/25 02:18 Total Bilirubin 0.9 mg/dL (0.15-1.2) 01/21/25 02:18 AST 17 U/L (0-32) 01/21/25 02:18 ALT 13 U/L (0-33) 01/21/25 02:18 Alkaline Phosphatase 88 U/L (35-105) 01/21/25 02:18 Troponin T Baseline 8 ng/L (0-10) 01/20/25 08:35 Troponin T 120 Minute 8.23 ng/L (0-10) 01/20/25 10:29 Delta Troponin T 0.23 ABS# (0-10) 01/20/25 10:29 Troponin T Hi Sens 6Hr 6.69 ng/L (0-10) 01/20/25 14:28 Troponin T Hi Sens 6Hr Delta -1.31 ng/L (0-12) L 01/20/25 14:28 NT-Pro-B Natriuret Pep 1341 pg/mL (0-125) H 01/20/25 08:35 Total Protein 6.6 g/dL (6.6-8.7) 01/21/25 02:18 Albumin 3.8 g/dL (3.5-5.2) 01/21/25 02:18 Globulin 2.8 g/dL (1.3-4.6) 01/21/25 02:18 Triglycerides 138 mg/dL (0-150) 01/20/25 08:35 Cholesterol 225 mg/dL (0-200) H 01/20/25 08:35 LDL Cholesterol, Calc 128 mg/dL (50-129) 01/20/25 08:35 HDL Cholesterol 69 mg/dL (60-100) 01/20/25 08:35 LDL/HDL Ratio 1.86 RATIO (0.00-3.22) 01/20/25 08:35 Cholesterol/HDL Ratio 3.26 mg/dL (0.0-4.40) 01/20/25 08:35 TSH 4.99 uIU/mL (0.27-4.20) H 01/20/25 08:35 Vitals Last Vital Signs Temp 97.9 F 01/21/25 11:54 Pulse 68 01/21/25 11:54 Resp 27 H 01/21/25 11:54 BP 125/67 01/21/25 11:54 Pulse Ox 93 01/21/25 11:54 O2 Del Method Room Air 01/21/25 11:54 Discharge Plan Discharge Patient Disposition: Home Condition: Stable Prescriptions: New hydralazine 25 mg Tablet 25 mg PO TID Qty: 90 0RF lorazepam 0.5 mg tablet 0.5 mg PO BID PRN (Reason: anxiety) Qty: 6 0RF Continued fluticasone propionate [Flonase Allergy Relief] 50 mcg/actuation spray,suspension 2 spray intranasal DAILY Qty: 16 0RF Rx Instructions: administer into each nostril aspirin 81 mg Tablet,Delayed Release (Dr/Ec) 81 mg PO DAILY PRN (Reason: Chest Pain) fluticasone propion-salmeterol [Wixela Inhub] 500-50 mcg/dose Blister With Device 1 inh INHALATION BID levothyroxine 150 mcg tablet 150 mcg PO QAM carvedilol 25 mg tablet 25 mg PO BID pramipexole 0.5 mg tablet See Rx Instructions .ROUTE .COMPLEX Rx Instructions: TAKE 1 TABLET IN THE MORNING AND 2 TABLETS AT BEDTIME. gabapentin 100 mg capsule 500 mg PO DAILY fluoxetine 60 mg tablet 60 mg PO DAILY No Action potassium chloride 10 mEq capsule, extended release 10 meq PO BID Qty: 60 1RF losartan 100 mg tablet 100 mg PO QDAY Qty: 90 0RF amlodipine 5 mg tablet 5 mg PO BID Qty: 60 1RF furosemide 20 mg tablet 20 mg PO BID Qty: 60 2RF Discharge Orders: Discharge Order (Routine); Ordered 01/21/25 Ordered By: China Palacios Referrals: Verito Swenson NP [Nurse Practitioner, Cardiology] - 01/29/25 1:00 pm Ilene Velásquez DO [Primary Care Provider, [employer]] - 01/26/25 11:15 am Discharge Diet: Cardiac Discharge Activity: Resume usual activity Patient Instructions: Generalized Anxiety Disorder, Lorazepam (By mouth), Hydralazine (By mouth), Hypothyroidism, Heart Failure (DC), Sleep Apnea (GEN), Opioid Safety Discharge Attestations Time Spent in Discharge Care*: greater than 30 min Quality Metrics Clinical Quality Measures [ No reported AMI, CVA or VTE this stay] Coding Level of Care Code Acute Code for Chg Fwd Diagnoses Coronary artery disease involving [place] coronary artery of [place] heart without angina pectoris I25.10 Associated angina: without angina Coronary Disease-Associated Artery/Lesion type: [place] artery [place] vs. transplanted heart: [place] heart Primary hypertension I10 Hypertension type: primary hypertension Diastolic heart failure I50.30
--- NOTE | 2025-01-21 14:18 | NMCV_ITS ---
NM naif perf SPECT r/s* [id number] Mylene Moran Age: 59 Gender: F : 1965 Exam Date: 01/21/2025 06:23 Ordering Phys: China Palacios MD Technologist: JARON Brady Exam Location: [facility] Indications: cp STRESS TEST Please see separate stress test report in [facility] for full findings IMAGE PROTOCOL Rest/Stress 1 Lexiscan Day Radiopharmaceutical Dose (mCi) Administration Site Administered by Rest: Tc-99m 10.9 IV Kristi Aguila, [employer] Sestamibi Stress:Tc-99m 33 IV Kristi Singletongle, [employer] Sestamibi Rest: 21-Jan-2025 60 Discovery 630 Stress: 21-Jan-2025 30 Discovery 630 0.4mg Lexiscan. Images obtained in supine and prone position. SPECT RESULTS Technical Quality: Good Raw Data Analysis: Normal Image Corrections: No attenuation or motion correction applied Summed Stress Score: 6 Summed Rest Score: 2 Summed Difference Score: 4 PERFUSION FINDINGS There is a medium sized area of fixed perfusion defect seen in the inferolateral wall. This improves on prone imaging. Likely consistent with attenuation artifact FUNCTIONAL RESULTS (calculated via Gated SPECT) Stress Image LV EF (%): 75 Stress EDV (mL):100 TID: 1.04 Stress ESV (mL):25 FUNCTIONAL FINDINGS: There is normal left ventricular systolic function. IMPRESSIONS 1. Medium sized area of attenuation artifact vs prior infarct seen in inferolateral wall. No significant ischemia 2. LV systolic function is normal Norman Cole MD (Electronically Signed) Final Date: 21 Jan 2025 08:46 S
== END 2025-01-21 13:10 | disposition home or self-care (01) ==
LOC: ER 08:21 → CSU 19:06
PROVIDERS: Admitting Provider Internal Medicine; Emergency Provider Family Medicine; PCP Family Medicine; Visit Provider Internal Medicine
DX: I25.10 Atherosclerotic heart disease of native coronary artery without angina pectoris (principal); I11.0 Hypertensive heart disease with heart failure; I50.30 Unspecified diastolic (congestive) heart failure; Z79.82 Long term (current) use of aspirin; G47.33 Obstructive sleep apnea (adult) (pediatric); E03.9 Hypothyroidism, unspecified; F41.9 Anxiety disorder, unspecified
CPT/HCPCS: 36415; 71045; 78452; 80053; 80061; 83036; 83735; 83880; 84443; 84484; 85025; 93005; 93017; 93306; 96372; 96374; 96375; 96376; 99285; A9500; G0378; J1644; J1938; J2060; J2785; J9999

== ENCOUNTER → 2025-01-29 12:58 | Outpatient (BNVA) | payer MEDICARE, MEDICAID, SELFPAY | PROVIDERS: PCP Family Medicine; Visit Provider Nurse Practitioner Family | DX: I11.0 Hypertensive heart disease with heart failure (principal); I50.9 Heart failure, unspecified; I25.10 Atherosclerotic heart disease of native coronary artery without angina pectoris; Z09 Encounter for follow-up examination after completed treatment for conditions other than malignant neoplasm; Z79.82 Long term (current) use of aspirin; E06.3 Autoimmune thyroiditis | CPT/HCPCS: 99214 ==

== ENCOUNTER 2025-02-05 14:11 | Outpatient (CLI) | payer MEDICARE, MEDICAID, SELFPAY ==
[2025-02-05 15:05] LABS: Anion Gap 16.1 (5-19); Blood Urea Nitrogen 21 mg/dL (6-20); Calcium 9.2 mg/dL (8.5-10.5); Carbon Dioxide 27 mmol/L (22-29); Chloride 100 mmol/L (98-107); Glomerular Filtration Rate 64.1 mL/min (90-130); Glucose 113 mg/dL (65-115); NT Pro B Type Natriuretic Pept 410 pg/mL (0-125); Osmolality Calculated 292 mOsm/kg (285-295); Potassium 4.1 mmol/L (3.5-5.1); Sodium 139 mmol/L (136-145)
== END 2025-02-05 14:12 | disposition home or self-care (01) ==
LOC: LAB 14:15
PROVIDERS: PCP Family Medicine; Visit Provider Nurse Practitioner Family
DX: I50.9 Heart failure, unspecified (principal); I25.10 Atherosclerotic heart disease of native coronary artery without angina pectoris
CPT/HCPCS: 36415; 80048; 83880

== ENCOUNTER → 2025-02-24 08:32 | Outpatient (BNVA) | payer MEDICARE, MEDICAID, SELFPAY | PROVIDERS: PCP Family Medicine; Visit Provider Nurse Practitioner Family | DX: I11.0 Hypertensive heart disease with heart failure (principal); I50.30 Unspecified diastolic (congestive) heart failure; I25.10 Atherosclerotic heart disease of native coronary artery without angina pectoris; G47.33 Obstructive sleep apnea (adult) (pediatric); I49.9 Cardiac arrhythmia, unspecified; E86.0 Dehydration; K91.2 Postsurgical malabsorption, not elsewhere classified | CPT/HCPCS: 36415; 80048; 80061; 99214 ==

== ENCOUNTER 2025-03-05 10:46 | Outpatient (CLI) | payer MEDICARE, MEDICAID, SELFPAY ==
[2025-03-05 12:40] LABS: NT Pro B Type Natriuretic Pept 165 pg/mL (0-125)
== END 2025-03-05 10:47 | disposition home or self-care (01) ==
LOC: LAB 10:47
PROVIDERS: PCP Family Medicine; Visit Provider Nurse Practitioner Family
DX: I50.30 Unspecified diastolic (congestive) heart failure (principal)
CPT/HCPCS: 36415; 83880

== ENCOUNTER 2025-06-23 11:55 | Outpatient (CLI) | payer MEDICARE, MEDICAID, SELFPAY ==
--- NOTE | 2025-06-23 12:01 | XR_ITS ---
WS: [id number] XR forearm LT 2V [id number] REASON FOR EXAM: left arm pain FINDINGS: There may be a small joint effusion. There is a deformity of the radial head and articular surface which appears old. There is mild narrowing of the ulnohumeral joint with moderate osteophytosis of the coronoid process. XR/XR forearm LT 2V [id number] IMPRESSION: Possible effusion without definite acute fracture. There is radial head deformi ty which appears old. Recommend follow-up examination in 7 days. Osteoarthritis as above.
--- NOTE | 2025-06-23 12:01 | XR_ITS ---
WS: [email or web address] XR ribs BI 3V* [id number] REASON FOR EXAM: rib pain FINDINGS: LEFT RIBS: No acute rib fracture. No acute abnormality within the left hemithorax. No subcutaneous emphysema. RIGHT RIBS: No acute fracture. No acute abnormality within the right hemithorax. No subcutaneous emphysema. XR/XR ribs BI 3V* [id number] IMPRESSION: No acute rib abnormality.
--- NOTE | 2025-06-23 12:01 | XR_ITS ---
WS: [email or web address] [id number] REASON FOR EXAM: arm pain after fall FINDINGS: The humerus is intact without fracture. No focal soft tissue abnormality. XR/[place] [id number] IMPRESSION: No acute abnormality.
== END 2025-06-23 11:56 | disposition home or self-care (01) ==
LOC: RAD 11:59
PROVIDERS: PCP Family Medicine
DX: M79.602 Pain in left arm (principal); S53.005A Unspecified dislocation of left radial head, initial encounter; W19.XXXA Unspecified fall, initial encounter; M25.722 Osteophyte, left elbow; M19.022 Primary osteoarthritis, left elbow
CPT/HCPCS: 71110; 73060; 73090

== ENCOUNTER 2025-07-02 14:06 | Outpatient (CLI) | payer MEDICARE, MEDICAID, SELFPAY ==
--- NOTE | 2025-07-02 14:15 | XR_ITS ---
WS: [email or web address] Chest 2 views, 07/02/2025 portable chest, 01/20/2025 Clinical Data: WHEEZING/FALL Comparison: None. Findings: No nodules, masses or effusions are seen. The heart is slightly enlarged. The pulmonary vascularity is not increased. No pneumonia or pneumothorax is seen. There are 2 mediastinal sutures. XR/XR chest 2V* [id number] Impression: Cardiomegaly.
== END 2025-07-02 14:07 | disposition home or self-care (01) ==
PROVIDERS: PCP Family Medicine; Visit Provider Nurse Practitioner Family
DX: R06.2 Wheezing (principal); I51.7 Cardiomegaly; S27.89 Injury of other specified intrathoracic organs; W19.XXXD Unspecified fall, subsequent encounter
CPT/HCPCS: 71046

== ENCOUNTER → 2025-07-12 12:50 | Outpatient (BNVA) | payer MEDICARE, MEDICAID, SELFPAY | PROVIDERS: PCP Family Medicine; Visit Provider Nurse Practitioner | DX: R39.9 Unspecified symptoms and signs involving the genitourinary system (principal) | CPT/HCPCS: 81000; 87086 ==